=== PATIENT | female | born 1940 | race Caucasian/White ===

== ENCOUNTER → 2018-01-28 11:57 | Outpatient (CLI) | payer MEDICARE, OTHER, SELFPAY ==
--- NOTE | 2018-01-28 12:01 | RAD_ITS ---
STUDY: X-RAY CHEST REASON FOR EXAM: Female, 77 years old. Asthma. TECHNIQUE: PA and lateral views of the chest. COMPARISON: Chest, October 11, 2016. FINDINGS: There is increased AP diameter of the chest. No focal mass or infiltrate. There is no demonstrated pleural abnormality. Normal size heart. Normal mediastinum and brandon. Normal visualized pulmonary arteries. There is atherosclerotic calcification of the aortic arch with tortuosity. . An exaggerated thoracic kyphosis. Normal visualized ribs, clavicles, and shoulders. There is no demonstrated abnormality of the visualized soft tissue structures of the upper abdomen. RAD/Chest PA and Lateral IMPRESSION: No acute cardiopulmonary disease. Electronically Signed: Nicholas Colin DO at 18:09 EDT Tel [phone], Service support ,
== END ==
PROVIDERS: Family Provider Internal Medicine; PCP Internal Medicine; Visit Provider Internal Medicine Pulmonary Disease
DX: J45.909 Unspecified asthma, uncomplicated (principal)
CPT/HCPCS: 71046

== ENCOUNTER → 2018-02-07 10:34 | Outpatient (CLI) | payer MEDICARE, OTHER, SELFPAY ==
--- NOTE | 2018-02-07 10:36 | ECHOD_ITS ---
Reason For Study: HTN Procedure This was a 2D Doppler, Color Flow transthoracic echocardiogram. The exam was of fair technical quality due to body habitus. Exam performed in department. Left Ventricle Normal LV size. Left ventricular systolic function is normal. The estimated ejection fraction is 65 %. Stage 1 diastolic dysfunction. No regional wall motion abnormalities noted. Right Ventricle Normal RV size. Normal systolic function. Atria Normal left atrium. Normal right atrium. Mitral Valve Normal mitral valve. Tricuspid Valve Normal tricuspid valve. Unable to estimate RV systolic pressure, pulmonary artery pressure probably normal. Aortic Valve Normal aortic valve. Trisinus/trileaflet aortic valve. Pulmonic Valve Normal pulmonic valve. Great Vessels Normal aortic root. The pulmonary artery is normal size. Normal inferior vena cava. Pericardium/Pleural No pericardial effusion. MMode/2D Measurements & Calculations LVIDd: 3.6 cm IVSd: 1.0 cm Ao root diam: 2.5 cm LVIDs: 2.4 cm LVPWd: 1.1 cm RVDd: 2.7 cm FS: 33.5 % LAV(MOD-bp): 47.0 ml LA A4 area: 18.0 cm2 RA A4 area: 10.4 cm2 LAV(MOD-bp) Indexed: 25.2 ml/m2 LAV(MOD-sp2): 45.9 ml LAV(MOD-sp4): 45.7 ml Doppler Measurements & Calculations MV E max antony: 70.9 cm/sec Lat Peak E' Antony: 8.8 cm/sec Med Peak E' Antony: 5.6 cm/sec MV A max antony: 98.4 cm/sec E/E' lat: 8.1 E/E' med: 12.6 MV E/A: 0.72 Ao V2 max: 180.2 cm/sec LV V1 max: 144.2 cm/sec Ao max P.0 mmHg LV V1 max P.3 mmHg Interpretation Summary Normal LV size. Left ventricular systolic function is normal. The estimated ejection fraction is 65 %. Stage 1 diastolic dysfunction. Structurally normal valves. Ordering Physician: Cinthia Quiroz Referring Physician: Cinthia Quiroz Performed By: Renetta Oviedo, FELA, RVT
== END ==
PROVIDERS: Family Provider Internal Medicine; PCP Internal Medicine; Visit Provider Internal Medicine
DX: I27.20 Pulmonary hypertension, unspecified (principal)
CPT/HCPCS: 93306

== ENCOUNTER → 2018-02-08 06:59 | Outpatient (CLI) | payer MEDICARE, OTHER, SELFPAY ==
--- NOTE | 2018-02-08 12:49 | STRESSREP_ITS ---
Stress Test Report Date: 02/08/2018 Procedure: Pharmacologic stress nuclear imaging study Indications: Abnormal ECG Consent: Per the patient Procedure: The patient underwent pharmacologic (Regadenoson) evaluation with a peak heart rate of 125 beats per minute (87 predicted maximal heart rate) and a peak blood pressure of 160/92 mmHg. The baseline ECG demonstrated normal sinus rhythm; incomplete right bundle branch block. The peak pharmacologic ECG demonstrated no obvious ECG changes. There were no cardiac dysrhythmias pretest, during pharmacologic infusion, or recovery. There was no complaint of chest discomfort during pharmacologic infusion or recovery. The examination was discontinued secondary to completion of protocol. Impression: 1. Pharmacologic (Regadenoson) evaluation 2. Peak pharmacologic ECG with no obvious ECG changes. 3. Were no cardiac dysrhythmias pretest, during pharmacologic infusion, or recovery 4. Nuclear images pending Myocardial perfusion imaging study: Technique: The patient was injected with 11.9 millicuries of technetium 99m Cardiolite and subsequently rest SPECT Cardiolite nuclear imaging was obtained in the horizontal long, vertical long, and short axis views. The patient underwent pharmacologic (Regadenoson) evaluation with a peak heart rate of 125 beats per minute (87 % percent predicted maximal heart rate) and a peak blood pressure of 160/92 mmHg. The patient was injected with 33.1 millicuries of technetium 99m Cardiolite and subsequently stress SPECT Cardiolite nuclear imaging was obtained in the horizontal long, vertical long, and short axis views. A gated Cardiolite study at peak stress was obtained. Interpretation: Rest and stress SPECT Cardiolite nuclear imaging status post realignment, normalization, and attenuation correction demonstrate relative uniform tracer uptake and myocardial perfusion appearing within normal limits. There is end systolic thickening and brightening. The gated Cardiolite study demonstrates myocardial thickening and inward wall motion. The reported LVEF is 72 %. Impression: 1. Rest and stress SPECT Cardiolite nuclear imaging demonstrate relative uniform tracer uptake and myocardial perfusion appearing within normal limits. 2. The gated Cardiolite study reports an LVEF of 72 %. This note was generated with [employer] Technologies[employer] software. It may contain incorrect words, spelling, and punctuation that were not noted in checking the note before signing.
== END ==
PROVIDERS: Family Provider Internal Medicine; PCP Internal Medicine; Visit Provider Internal Medicine
DX: R94.31 Abnormal electrocardiogram [ECG] [EKG] (principal); I27.20 Pulmonary hypertension, unspecified
CPT/HCPCS: 78452; 93017; A9500; A4216; J2785

== ENCOUNTER → 2018-02-12 12:17 | Outpatient (CLI) | payer MEDICARE, OTHER, SELFPAY ==
--- NOTE | 2018-02-12 12:48 | RAD_ITS ---
STUDY: X-RAY - THORACIC SPINE REASON FOR EXAM: Female, 77 years old. Back pain for 55 years. Lumbar surgery one year ago. TECHNIQUE: 3 view(s) of the thoracic spine were obtained. COMPARISON: None. FINDINGS: There is an increase in the normal thoracic kyphosis. There is a mild levoscoliosis of the thoracic or lumbar spine with convexity at L1. There is demineralization of the thoracic spine with endplate spondylosis. There is multilevel disc space narrowing of the thoracic spine. There is no evidence of acute fracture or loss of vertebral axial height. The soft tissue structures are unremarkable. RAD/Thoracic Spine 3 Views IMPRESSION: Degenerative changes of the thoracic spine. Electronically Signed: Nicholas Colin DO at 13:24 EDT Tel [phone], Service support ,
== END ==
PROVIDERS: Family Provider Internal Medicine; PCP Internal Medicine; Visit Provider Anesthesiology Pain Medicine
DX: M54.6 Pain in thoracic spine (principal)
CPT/HCPCS: 72072

== ENCOUNTER → 2018-05-21 14:34 | Outpatient (CLI) | payer MEDICARE, OTHER, SELFPAY ==
[2018-05-21 17:00] LABS: Amphetamine Urine VISTA NEGATIVE (<1000 ng/mL); Barbiturate Urine VISTA NEGATIVE (< 200 ng/mL); Benzodiazepine Urine VISTA NEGATIVE (< 200 ng/mL); Cocaine Urine VISTA NEGATIVE (< 300 ng/mL); Ecstacy Urine VISTA NEGATIVE (< 500 ng/mL); Methadone Urine VISTA NEGATIVE (< 300 ng/mL); PCP Urine VISTA NEGATIVE (< 25 ng/mL); THC Urine VISTA NEGATIVE (< 50 ng/mL); Vista UDS pH Range 5
== END ==
PROVIDERS: Family Provider Internal Medicine; PCP Internal Medicine; Visit Provider Anesthesiology Pain Medicine
DX: F11.20 Opioid dependence, uncomplicated (principal)
CPT/HCPCS: 80307

== ENCOUNTER → 2018-06-11 12:49 | Outpatient (CLI) | payer MEDICARE, OTHER, SELFPAY | PROVIDERS: Family Provider Internal Medicine; PCP Internal Medicine; Visit Provider Orthopaedic Surgery | DX: M54.5 Low back pain (principal) | CPT/HCPCS: 72110 ==

== ENCOUNTER → 2018-08-29 12:31 | Outpatient (CLI) | payer MEDICARE, OTHER, SELFPAY ==
[2018-04-16 13:07] VITALS: BMI 37.4
--- NOTE | 2018-08-29 12:46 | RAD_ITS ---
STUDY: X-RAY CHEST REASON FOR EXAM: Female, 78 years old. Asthma. TECHNIQUE: PA and lateral views of the chest. COMPARISON: October 12, 2016 FINDINGS: The lungs are underexpanded. This is similar to previous study suggesting possible sequelae restrictive lung disease. There is interstitial thickening present in both lung bases and possible subsegmental atelectasis. There is no demonstrated pleural abnormality. There is mild cardiac enlargement. Normal mediastinum and brandon. Normal visualized pulmonary arteries. There is atherosclerotic calcification of the aortic arch with tortuosity. There is demineralization of the osseous structures. There is increased thoracic kyphosis. Normal visualized ribs, clavicles, and shoulders. There is no demonstrated abnormality of the visualized soft tissue structures of the upper abdomen. RAD/Chest PA and Lateral IMPRESSION: Bilateral basilar subsegmental atelectasis. Electronically Signed: Soraya Lemus MD at 3:18 EST , Service support ,
== END ==
PROVIDERS: Family Provider Internal Medicine; PCP Internal Medicine; Referring Provider Nurse Practitioner Gerontology; Visit Provider Nurse Practitioner Gerontology
DX: J45.901 Unspecified asthma with (acute) exacerbation (principal)
CPT/HCPCS: 71046

== ENCOUNTER → 2018-10-18 11:20 | Outpatient (CLI) | payer MEDICARE, OTHER, SELFPAY ==
--- NOTE | 2018-10-18 11:30 | RAD_ITS ---
STUDY: X-RAY - THORACIC SPINE REASON FOR EXAM: Female, 78 years old. Surgery on back 2 years ago, bent over the upper back TECHNIQUE: 3 view(s) of the thoracic spine were obtained. COMPARISON: 02/12/2018 FINDINGS: There is an increase in the normal thoracic kyphosis. Minimal dextroscoliosis of the upper thoracic spine. There is demineralization of the thoracic spine with endplate spondylosis. There is multilevel disc space narrowing of the thoracic spine. No compression fracture. The soft tissue structures are unremarkable. RAD/Thoracic Spine 2 Views IMPRESSION: 1. No compression fracture. 2. Stable degenerative changes. Electronically Signed: Clemente Hallman MD at 7:31 EST , Service support ,
== END ==
PROVIDERS: Family Provider Internal Medicine; PCP Internal Medicine; Referring Provider Anesthesiology Pain Medicine; Visit Provider Anesthesiology Pain Medicine
DX: M54.6 Pain in thoracic spine (principal)
CPT/HCPCS: 72070

== ENCOUNTER → 2018-11-14 12:36 | Outpatient (CLI) | payer MEDICARE, OTHER, SELFPAY ==
--- OUTSIDE RECORDS SUMMARY | 2018-01-30 06:32 | XMS RPT_ITS ---
:1940 Author Organization OHIP Support Name Relationship Address Phone HODARRYN, KENDELL Unavailable [address] [place] [address] R Unavailable Unavailable Unavailable HOUTS, KENDELL Unavailable [address] [place] [address] R Unavailable Unavailable Unavailable HOUTS, KENDELL Unavailable [address] [place] [address] R Unavailable Unavailable Unavailable HOUTS, KENDELL Unavailable [address] + [address] [place] [address] R Unavailable Unavailable Unavailable HOUTS, KENDELL Unavailable [address] [place] [address] R Unavailable Unavailable Unavailable HOUTS, KENDELL Unavailable [address] [place] [address] R Unavailable Unavailable Unavailable HOUTS, KENDELL Unavailable [address] [place] [address] R Unavailable Unavailable Unavailable HOUTS, KENDELL Unavailable [address] [place] [address] R Unavailable Unavailable Unavailable HOUTS, KENDELL Unavailable [address] [place] [address] R Unavailable Unavailable Unavailable HOUTS, KENDELL Unavailable [address] [place] [address] R Unavailable Unavailable Unavailable HOUTS, KENDELL Unavailable [address] [place] [address] R Unavailable Unavailable Unavailable HOUTS, KENDELL Unavailable [address] [place] [address] R Unavailable Unavailable Unavailable HOUTS, KENDELL Unavailable [address] [place] [address] R Unavailable Unavailable Unavailable Care Team Providers Name Role Phone Riojas, Kalia Attending Unavailable Gabriella, Cinthia Primary Care Unavailable Ayden Lemus Attending Unavailable Gabriella, Cinthia Primary Care Unavailable Gabriella, Cinthia Primary Care Unavailable Ayden Lemus Attending Unavailable Lemus, Ayden Attending Unavailable Mi, Mary Anne Attending Unavailable Mi, Mary Anne Attending Unavailable Gabriella, Cinthia Primary Care Unavailable Mi, Mary Anne Attending Unavailable Basali, Simman Attending Unavailable Gabriella, Cinthia Primary Care Unavailable Gabriella, Cinthia Primary Care Unavailable Basali, Simman Attending Unavailable Gabriella, Cinthia Primary Care Unavailable Mi, Mary Anne Attending Unavailable Gabriella, Cinthia Attending Unavailable Gabriella, Cinthia Primary Care Unavailable Gabriella, Cinthia Attending Unavailable Gabriella, Cinthia Referring Unavailable Gabriella, Cinthia Primary Care Unavailable Gabriella, Cinthia Primary Care Unavailable Cheko Arias Attending Unavailable Cheko Arias Referring Unavailable PROBLEMS PROBLEMS DATE TYPE CONDITION / CODE ATTENDING STATUS SOURCE 01/30/2018 Unknown R94.31 - Abnormal Gabriella, Active [place] electrocardiogram [facility] [ECG] [EKG] / Hospital R94.31(ICD-10) Repository 09/17/2017 Unknown N63.20 - Unspecified Gabriella, Active [place] lump in the left [facility] breast, unspecified Hospital quadrant / Repository N63.20(ICD-10) 08/30/2017 Unknown SPONDYLOLISTHESIS, Mi, Mary Anne Active [place] LUMBAR REGION / Community M43.16(ICD-10) Hospital Repository 08/30/2017 Unknown ARTHRODESIS STATUS / Mi, Mary Anne Active [place] Z98.1(ICD-10) Community Hospital Repository 05/30/2017 Unknown OPIOID DEPENDENCE, Jean Claude Delgado Active [place] UNCOMPLICATED / Community F11.20(ICD-10) Hospital Repository 05/30/2017 Unknown RADICULOPATHY, LUMBAR Mi, Mary Anne Active [place] REGION / Community M54.16(ICD-10) Hospital Repository 05/30/2017 Unknown SPRAIN OF OTHER Riojas, Kalia Active [place] LIGAMENT OF RIGHT Community ANKLE, INITIAL Hospital ENCOUNTER / Repository S93.491A(ICD-10) 05/30/2017 Unknown OBSTRUCTIVE SLEEP Riojas, Kalia Active [place] APNEA (ADULT) Community (PEDIATRIC) / Hospital G47.33(ICD-10) Repository 05/30/2017 Unknown DORSALGIA, UNSPECIFIED Riojas, Kalia Active [place] / M54.9(ICD-10) [facility], 1928[facility]1983 Hospital Repository 05/30/2017 Unknown OTHER CHRONIC PAIN / Riojas, Kalia Active [place] G89.29(ICD-10) [facility], [facility]1983 Hospital Repository 05/30/2017 Unknown OVEREXERTION FROM Riojas, Kalia Active [place] PROLONGED STATIC OR Community AWKWARD POSTURES, INIT Hospital / X50.1XXA(ICD-10) Repository 05/30/2017 Unknown ACTIVITY, OTHER Riojas, Kalia Active [place] SPECIFIED / Community Y93.89(ICD-10) Hospital Repository 05/30/[address] OR Riojas, Kalia Active [place] NOT APPLICABLE / Community Y92.9(ICD-10) Hospital Repository 05/30/2017 Unknown OTHER EXTERNAL CAUSE Riojas, Kalia Active [place] STATUS / Y99.8(ICD-10) [facility] Repository PROCEDURES PROCEDURES No Procedure Records FoundRESULTS RESULTS CHEST PA AND LATERAL Observed: 01/28/2018 Status: F Source: [place] 12:01 PM [facility] RE[facility]IT[facility] [id number] [facility] [place], [place] [address]Tylgp PA and LateralMR#: [id number] Acct: [id number]: [place] MILLER Rep #: [id number]: 1940 F 77 From: Nicholas Colin DOPCP: Cinthia Quiroz DO Status: REG CLIStudy: Chest PA and Lateral Date of Exam: 01/28/18Exam# [id number] Ordering Dr: Cheko Arias V MDSTUDY: X-RAY CHESTREASON FOR EXAM: Female, 77 years old. Asthma.TECHNIQUE: PA and lateral views of the chest.COMPARISON: Chest, October 11, 2016. FINDINGS:There is increased AP diameter of the chest. No focal mass or infiltrate.There is no demonstrated pleural abnormality.Normal size heart. Normal mediastinum and brandon. Normal visualizedpulmonary arteries. There is atherosclerotic calcification of the aorticarch with tortuosity.. An exaggerated thoracic kyphosis. Normal visualized ribs, clavicles,and shoulders.There is no demonstrated abnormality of the visualized soft tissuestructures of the upper abdomen. RAD/Chest PA and LateralIMPRESSION:No acute cardiopulmonary disease.Electronically Signed:Nicholas Colin DO at 18:09 EDTT [phone], Service support , AV: Cinthia Quiroz DO; Cheko Arias MD Fender Mechanic:Signed BREAST LIMITED Observed: 09/17/2017 Status: F Source: [place] UNILATERAL 2:18 PM [facility] REPOSITORY [facility] [address], [place] [address]Vhfyow Limited UnilateralMR#: [id number] Acct: [id number]: [place] MILLER Rep #: [id number]: 1940 F 77 From: Michael Sutherland MDPCP: Cinthia Quiroz DO Status: REG CLIStudy: Breast Limited Unilateral Date of Exam: 09/17/17Exam# [id number] Ordering Dr: Cinthia Quiroz DOSTUDY: ULTRASOUND BREAST - LEFTREASON FOR EXAM: Female, 77 years old. Left breast pain.TECHNIQUE: Axial and longitudinal images of the LEFT breast wereperformed with a high resolution ultrasound transducer.COMPARISON: Comparison is made with prior ultrasound dated November and prior mammogram done earlier in the day. FINDINGS:LEFT Breast :There is a 4 mm x 4 mm x 3 mm cyst at the 5:00 position in the breast at 2cm from the nipple. ORDER #: [id number] US/Breast Limited UnilateralIMPRESSION:4 mm x 4 mm x 3 mm cyst at the 5:00 position breast at 2 cm from thenipple. ASSESSMENT CATEGORY:BIRADS Category 2: Benign. A letter regarding these results will be sentto the patient by the facility within 30 days.Electronically Signed:Michael Sutherland MD at 15:33 ESTTel [phone], Service support , QG: Cinthia Quiroz DO Fender Mechanic:Signed DIAG MAMM W/CAD, Observed: 09/17/2017 Status: F Source: [place] BILAT 1:12 PM [facility] RE[facility]ITORY [facility] [address] [place], [place] [address]WDSM MAMM W/CAD, BILATMR#: [id number] Acct: [id number]: ROSELYNJAMAICA CATES Rep #: [id number]: 1940 F 77 From: Michael Sutherland MDPCP: Cinthia Quiroz DO Status: REG CLIStudy: DIAG MAMM W/CAD, BILAT Date of Exam: 09/17/17Exam# [id number] Ordering Dr: Cinthia Quiroz DOMAMMOGRAPHY - BILATERAL DIAGNOSTICREASON FOR EXAM: Female, 77 years old. Pain along the lateral outerquadrant of the left breast.PERTINENT HISTORY: Prior right excisional breast biopsy.TECHNIQUE: Digital bilateral breast mickey (3D mammographic acquisition) inthe CC and MLO projections. 2-D mediolateral oblique (MLO) and craniocaudad(CC) views of both breasts were obtained. CAD: Full Field DigitalMammography with Computer Added Detection was performed.COMPARISON : Comparison is made with prior study dated May 02, 2016 andApril 06, 2015. FINDINGS:Breast Composition: There are scattered areas of fibroglandular density.There are no dominant masses or suspicious calcifications. Stable smallbilateral benign appearing axillary lymph nodes. Stable benign-appearingsmall nodules in the upper outer quadrant of the left breast suggestive ofsmall lymph nodes.No other significant abnormalities are identified. There has been nosignificant change since the prior study. ORDER #: [id number] HPBI/DIAG MAMM W/ CAD, BILATIMPRESSION:Stable bilateral diagnostic mammogram. One year follow-up recommended. (A) ASSESSMENT CATEGORY:BIRADS Category 2: Benign. A letter regarding these results will be sentto the patient by the facility within 30 days.Approximately 10% of breast cancers are not detected by mammography. Anormal mammogram should not delay biopsy of a clinically suspiciousabnormality.Electronically Signed:Michael Sutherland MD at 15:32 ESTTel [phone], Service support , DU: Cinthia Quiroz DO Fender Mechanic:Signed L/S SPINE MIN 4 Observed: 08/28/2017 Status: F Source: [place] [facility] 10:47 AM [facility] REPOSITORY [facility] [id number] [place] [address]/S Spine Min 4 ViewsMR#: [id number] Acct: [id number]: [place] MILLER Rep #: [id number]: 1940 F 77 From: Julien Aragon MDPCP: Cinthia Quiroz DO Status: REG CLIStudy: L/S Spine Min 4 Views Date of Exam: 08/28/17Exam# [id number] Ordering Dr: Mary Anne Mi MDSTUDY: X-RAY - LUMBAR SPINEREASON FOR EXAM: Female, 77 years old. PostopTECHNIQUE: 5 view(s) of the lumbar spine were obtained.COMPARISON: X- rays of the lumbar spine on May 02, 2017 FINDINGS :There is an exaggerated lumbar lordosis. There is no substantialscoliosis. The patient is status post posterior fusion with transpedicularscrews at L5-S1. The hardware is intact and in proper position.Normal vertebral bodies. There is degenerative disc disease of the lowerthoracic spine and upper lumbar spine with anterior osteophytes. There isdisc space narrowing at L1-2 and L2-3 and L5-S1. There is osteoporosis.There is atherosclerotic calcification of the abdominal aorta without ademonstrated aneurysm. ORDER #: [id number] RAD/L/S Spine Min 4 ViewsIMPRESSION:Status post posterior fusion at L5-S1, uncomplicated.Multilevel degenerative disease.Stable since last examination.Electronically Signed: Julien Aragon MD, FRKU5216/08/28 at 15:24 ESTTel , Service support , YR: Mary Anne Mi; Cinthia Quiroz DO Fender Mechanic:Signed PT D/C SUMMARY (1) Observed: 06/27/2017 Status: F Source: [place] 11:24 AM [facility] [address] [facility] [address] [place] [address] [phone] [phone] FaxREHABILITATION SERVICESDISCHARGE SUMMARYMR#: [id number] Acct : [id number]: [place] MILLER Rep #: [id number]: 1940 77 From: Shin Foster PT, Cert. MDT, OCSReferring DrKathie: Mary Anne Mi Status: REG RCRInsurance: MEDICARE PART A BCOMMERCIAL OTHERHP - PT D/C SummaryIt has been my pleasure to treat JAMAICA MILLER under orders from Mary Anne Mi, for thediagnosis of s/p lumbar fusion for a total of 7 visit(s).Discharge Date: 06/26/17Please see the following information for a summary of their discharge status.- SubjectiveSubjective: DOING GOOD- Pain Bilateral BackPain Intensity (Out of 10): 1- Overall Improvement% Improvement: 75- ObjectiveObjective/Function: POSTURE: rounded shoulders head. GAIT: mild foward posture. MMT: 4/5quads/hams,flexion 4-/5. LUMBAR ROM: flexion WFL,extension min/mod. -SLR- GoalsGoal 1:: Independant with HEP.Goal Progress: Goal MetGoal 2:: Independant with posture for ADL'SGoal Progress: Goal MetGoal 3:: Decrease lumbar pain by 50% or greater to improve function with walking and standingGoal Progress: Goal MetGoal 4:: Patient to increase strength BLE by 4/5 to improve function with walking and standing.Goal Progress: Goal MetGoal 5:: Patient be able to perform ADLS' and light housework tasks with min limiation- PlanPlan: D/C TO HEP- D/C InformationDischarge Comments: HEPIf there are questions or concerns regarding this patient's physical therapy, please feel freeto call me at [phone]. Thank you for the referral of this patient.Sincerely,Shin Foster PT,< Electronically signed by Shin Foster PT, Cert. CONNOR, OCS> 06/27/17 1124CC: Mary Anne Mi; Cinthia Quiroz DO DT: 06/26/17JLASigned INITAL EVALUATION (1) Observed: 05/30/2017 Status: F Source: [place] [facility] 8:17 AM [facility] [address] [facility]. [address] [place] [address] [phone] [phone] FaxREHABILITATION SERVICESINITIAL EVALUATIONMR#: [id number] Acct: [id number]: [place] MILLER Rep #: [id number]: 1940 77 From: Shin Androsik PT, Cert. MDT, OCSReferring : Mary Anne Mi Status: REG RCRInsurance: MEDICARE PART A BCOMMERCIAL OTHERPatient's Visit InformationJAMAICA MILLER is a 77 year old F referred to Physical Therapy by Mary Anne Mi with adiagnosis of s/p lumbar fusion.Date of Evaluation: 05/29/17Physical Therapist: Shin Foster, PT,- Visit PlanFrequency: 2x /WeekDuration: 4 WeeksPlan: POSTURAL EX'S,DLS,BLE STRENGTHENING- SubjectiveSubjective: This 77 y/o female presents to physical therapy with s/p lumbar fusion 02/19/17 [facility]. Surgery consisted of jennifer screws. Patient has had lumbar pain andradicular symptoms many years.Patient had MRI showed DDD ,stenosis. Tried PT and epiduralinjections didn't help. Patient in hospital for 6 days with 1st 3days laying supine due tosurgery dural tear . Patient was transferred to [facility] for Rehab 5 1/2 weeks then d/chome with HOME PT. Patient intially used fww then straight cane. Patient has symmtricallylumbar pain ocassioanl hip pain left side. Bowel/bladder good . Denies parathesia tingling.Pain worse with walking,standing ,sitting. Patient pain affects sleeping. Pain is able toperform ADL'S min housework tasks. SOCAIL: single. VOCATION: retired- Pain Bilateral BackPain Intensity (Out of 10): 4Pain Intensity Range: 10- ObjectivePOSTURE: mild/mod thoracic kyphosis,mild foward posture ,hips/knees flexed. GAIT: mildunsteady mild foward posture. NEURO: denies parathesia/tingling,reflexes 1/3L3-4,L4-5,L51-S1,mytomes inact. MMT: quads/hams/hip 4-/5,left 3+/5 ,ankle 4 /5. FLEXABILITY:hams min tight. ASSYMTRIES : pelvis. LUMBAR ROM: flexion min loss,extension mod/severe,sideglides mod loss- Special TestsL/S Slump test left side: NegativeL/S Slump test right side: NegativeL/S Left Straight Leg Raise: NegativeL/S Right Straight Leg Raise: Negative- GoalsGoal 1:: Independant with HEP.Goal Time Frame: 4-6 WeeksGoal 2:: Independant with posture for ADL'SGoal Time Frame: 4-6 WeeksGoal 3:: Decrease lumbar pain by 50% or greater to improve function with walking and standingGoal Time Frame: 4-6 WeeksGoal 4:: Patient to increase strength BLE by 4/5 to improve function with walking and standing.Goal Time Frame: 4-6 WeeksGoal 5:: Patient be able to perform ADLS' and light housework tasks with min limiationGoal Time Frame: 4-6 Weeks- Rehabilitation PotentialPhysical Therapy Diagnosis: Patient underwent s/p lumbar fusion with rods and srews on 02/19/17with strength, lumbar ROM,function ,endurance thus will benifit from skilled PT toadress above impairmetsRehabilitation Potential: Good- Anticipated InterventionsPatient/ Client Instruction: Educate patient on: Condition, Plan of CareFor the Purpose of:: To decrease pain, To improve muscle performance and motor function, Toincrease tolerance to activity/condition/position, To improve performance and independence withADL 's, To improve ability of physical actions for home/community/work/leisure, To improvehealth of tissue, To decrease soft tissue restriction, To increase flexibility/ROM, To improveendurance, To reduce risk of recurrence, To improve ability to perform tasks related to lifemanagementTherapeutic Exercise to Include: Strength training, Body mechanics, Postural training,Flexibilty training, Dynamic Lumbar StabilizationFor the Purpose of:: To decrease pain, To increase tolerance to activity/condition/ position, Toimprove performance and independence with ADL's, To improve ability of physical actions forhome/community/work/leisure, To improve health of tissue, To decrease soft tissue restriction,To increase flexibility/ROM, To improve endurance, To improve ability to perform tasks relatedto life managementManual Therapy Techniques to Include: Soft tissue mobilizationFor the Purpose of:: To decrease pain, To improve health of tissue, To decrease soft tissuerestrictionIF ES: YesCryotherapy (ice pack, ice massage): YesThermo therapy (hot pack): YesFor the Purpose of:: To decrease pain, To increase ROM, To improve nutrient delivery to tissue,To increase oxygenation perfusion, To improve health of tissue, To decrease soft tissuerestrictionThank you for the opportunity to evaluate your patient.For Medicare and Medicare HMO plans, please review the plan of care and approve it.It will need to be FAXED BACK to us at [phone] for Medicare purposes.Please let me know if there are questions or concerns regarding this plan of care.Physician Signature: Date: &lt ;Elect ronically signed by Shin Foster PT, Cert. MDT, OCS> 05/30/17816CC: Mary Anne Mi; Cinthia Quiroz DO DT: 05/29/17JLASignedFor Medicare only, by signing this I certify the plan of care. Physicians Signature Date URINE DRUG SCREEN Collected: 05/12/2017 Status: F Source: [place] ([place] CARL[place]) 10:59 AM [facility] REPOS[facility] Order Comment: Comments: RUN LOWEST TESTList of Drugs Taken or Suspected? UNKNOWN TYPE CODE TESTS RESULT OUT OF RANGE REFERENCE UNITS LAB L505.0075 Normal TO BE CONFIRMED Result Comment: CONFIRMATORY TESTING FOR ALL POSITIVE URINE DRUG SCREENRESULTS WILL ONLY BE SENT OUT UPON PHYSICIAN ORDER.VISTA Urine Drug Screen methods provide only preliminaryanalytical test results. A more specific alternate chemicalmethod must be used in order to obtain a confirmedanalytical result. Gas chromatography/mass spectrometery(GC/MS) is the preferred confirmatory method. Clinicalconsideration and professional judgement should be appliedto any drug of abuse test result, particularly whenpreliminary positive results are used.URINE TCA TESTING MUST BE ORDERED SEPARATELY. USE TESTMNEMONIC: [facility] LAB L505.5005 Normal VISTA UDS PH 6 LAB L505.5015 Normal <1000 AMPHETAMINES NEGATIVE ng/mL LAB L505.5025 Normal < 200 BARBITIURATES NEGATIVE ng/mL LAB L505.5035 Normal < 200 BENZODIAZIPINE NEGATIVE ng/mL LAB L505.5045 Normal < 300 COCAINE NEGATIVE ng/mL LAB L505.5055 High < 500 ECSTACY POSITIVE ng/mL LAB L505.5065 Normal < 300 METHADONE NEGATIVE ng/mL LAB L505.5075 Normal < 300 OPIATES NEGATIVE ng/mL LAB L505.5085 Normal < 25 PCP NEGATIVE ng/mL LAB L505.5095 Normal < 50 THC NEGATIVE ng/mL Performed By: #### L505.5000 ####[facility] [address] [place], [place], [address] MISCELLANEOUS LAB Collected: 05/12/2017 Status: F Source: [place] PROCEDURE 10:59 AM [facility] RE[facility] Order Comment: Comments: RUN LOWEST TESTTest(s) Ordered: [id number] URINE TOX TYPE CODE TESTS RESULT OUT OF RANGE REFERENCE UNITS LAB L801.1541 Normal [facility] LAB TEST Result Comment: 090080 6+OXYCODONE-BUND (ng/mL)DRUG RESULT SCREEN CUTOFF____ Amphetamines,Urine Negative ng/mL 1000Amphetamine test includes Amphetamine and Methamphetamine.Barbiturates Negative ng/mL 200Benzodiazepines Negative ng/mL 200Cannabinoid Negative ng/mL 20Cocaine (Metab) Negative ng/mL 300Opiates Negative ng/mL 300 Opiates test includes Codeine, Morphine, Hydromorphone, Hydrocodone.Oxycodone/Oxymorphone, Urine Negative ng/mL 300 Test includes Oxydodone and Oxymorphone. TESTING PERFORMED AT [facility]. ORIGINAL REPORT ON FILE IN LAB CONTAINS ADDITIONAL TEST SITE INFORMATION. Performed By: #### L801.1541 ####[facility] [address] [place], [address] URINE DRUG SCREEN Collected: 05/11/2017 Status: P Source: [place] ([place] CARLOS) 2:21 PM [facility] RE[facility] Order Comment: Comments: RUN LOWEST TESTList of Drugs Taken or Suspected? UNK TYPE CODE TESTS RESULT OUT OF RANGE REFERENCE UNITS LAB L505.0075 Normal TO BE CONFIRMED Result Comment: CONFIRMATORY TESTING FOR ALL POSITIVE URINE DRUG SCREENRESULTS WILL ONLY BE SENT OUT UPON PHYSICIAN ORDER.VISTA Urine Drug Screen methods provide only preliminaryanalytical test results. A more specific alternate chemicalmethod must be used in order to obtain a confirmedanalytical result. Gas chromatography/mass spectrometery(GC/MS) is the preferred confirmatory method. Clinicalconsideration and professional judgement should be appliedto any drug of abuse test result, particularly whenpreliminary positive results are used.URINE TCA TESTING MUST BE ORDERED SEPARATELY. USE TESTMNEMONIC: [facility] Performed By: #### L505.5000 ####[facility] [address] [place], [address] LUMBAR SPINE 2 OR 3 Observed: 05/02/2017 Status: F Source: [place] VIEWS 8:36 AM [facility] RE[facility] [address], [place] [address]Huifmcl 4dLumbar Spine 2 or 3 ViewsMR#: [id number] Acct: [id number]: [place] MILLER Rep #: [id number]: 1940 F 76 From: Ari Dyson MDPCP: Status: REG CLIStudy: Lumbar Spine 2 or 3 Views Date of Exam: 05/02/17Exam# [id number] Ordering Dr: Mary Anne Mi MDSTUDY: X-RAY - LUMBAR SPINEREASON FOR EXAM: Female, 76 years old. PostopTECHNIQUE: 3 view(s) of the lumbar spine were obtained.COMPARISON: 03/27/2017 FINDINGS: Stable postoperative changes including fixation at L5-S1. No acuteabnormalities. Mild/moderate multilevel degenerative changes.IMPRESSION: Stable satisfactory appearance of surgical changes and fixationat L5-S1.Electronically Signed: Ari Dyson MD at 16:40 EDTTel , Service support , CRVXB #: [id number] RAD/Lumbar Spine 2 or 3 ViewsCC: Mary Anne Mi M.D. Fender Mechanic:Signed L/S SPINE W BEND Observed: 03/27/2017 Status: F Source: [place] MIN 6 VW 11:36 AM [facility] RE[facility] [address] [place] [address]Omrtqix 4dL/S Spine w Bend Min 6 VwMR#: [id number] Acct: [id number]: [place] MILLER Rep #: [id number]: 1940 F 76 From: Julien Aragon MDPCP: Status: REG CLIStudy: L /S Spine w Bend Min 6 Vw Date of Exam: 03/27/17Exam# [id number] Ordering Dr: Mary Anne Mi MDSTUDY: X-RAY - LUMBOSACRAL SPINEREASON FOR EXAM: Female, 76 years old. 6 weeks surgery follow-upTECHNIQUE: 6 view(s) of the lumbosacral spine were obtained.COMPARISON: Prior preoperative x-rays of the lumbar spine on January FINDINGS:Normal lumbar lordosis. There is mild levoscoliosis. The patient is statuspost posterior fusion at L5-S1 since the last examination withtranspedicular screws and posterolateral fusion with bone graft material.Grade 1 anterolisthesis is again noted. The hardware is intact and properposition.Normal vertebral bodies and endplates. Normal disc space heights.Normal bilateral sacral ala, sacroiliac joints, and visualized sacrum.Normal visualized soft tissue structures. The patient is status post lefttotal hip arthroplasty. ORDER #: [id number] RAD/L/S Spine w Bend Min 6 VwIMPRESSION:Status post posterior fusion at L5-S1 with transpedicular screws and bonegraft material, stable, uncomplicatedElectronically Signed: Julien Aragon MD, HWLA4879/03/27 at 14:02 [facility] System [phone], Service support , UF: Mary Anne Mi M.D. Fender Mechanic: Signed CBC-COMPLETE BLOOD CNT Collected: 03/09/2017 Status: F Source: [place] NO DIFF 4:47 AM [facility] REPOSITORY Order Comment: 410 TYPE CODE TESTS RESULT OUT OF RANGE REFERENCE UNITS LAB L100.1000 Normal 4.4-11.0 K/mm3 WBC 8.0 LAB L100.1200 Low 4.2-5.4 M/mm3 RBC 3.39 LAB L100.1300 Low 12.0-15.0 g/dl HGB 9.8 LAB L100.1400 Low 37-47 % HCT 31.6 LAB L100.1500 Normal 81-99 fL MCV 93.2 LAB L100.1600 Normal 27.0-32.0 pg MCH 28.9 LAB L100.1700 Low 32-36 g/gl MCHC 31.0 LAB L100.1810 High 11.6-14.6 % RDW 15.8 CV LAB L100.1820 High 35.1-43.9 fl RDW 54.1 SD LAB L100.1900 High 150-450 K/mm3 PLT 489 LAB L100.2000 Normal 6.2-12.0 fl MPV 8.6 Performed By: #### L100.0500 ####[facility] [address] [place], [address] BASIC METABOLIC Collected: 03/09/2017 Status: F Source: [place] PROFILE (BMP) 4:47 AM [facility] REPOS[facility]ORY Order Comment: 410 TYPE CODE TESTS RESULT OUT OF RANGE REFERENCE UNITS LAB L501.0100 Normal 70-110 mg/dL GLU 104 LAB L501.1000 High 7-18 mg/dL BUN 24 LAB L501.1100 High 0.55-1.02 mg/dL 1.18 CREAT,SERUM Result Comment: The validity of the calculated GFR AND GFRAA in patients over70 years has not been determined. Clinical correlation isessential. LAB L501.1110 Low >60 mL/min EST GFR 47 Result Comment: Non- GFR Calc LAB L501.1115 Low >60 mL/min EST GFR - AA 57 Result Comment: GFR Calc LAB L501.1300 High 10-20 RATIO BUN/CRE 20.3 LAB L501.2200 Normal 8.5-10.1 mg/dL CA 8.7 LAB L501.5300 Normal 136-145 mmol/L NA 139 LAB L501.5600 Normal 3.5-5.1 mmol/L K 4.3 LAB L501.5900 Normal 98-107 mmol/L CL 100 LAB L501.6100 High 21.0-32.0 mmol/L CO2 34.0 LAB L501.6200 Normal 5-15 GAP 5 Performed By: #### L500.2500 ####[facility] [address] [place], [place], [id number] CBC-COMPLETE BLOOD CNT Collected: 03/02/2017 Status: F Source: [place] NO DIFF 6:05 AM [facility] RE[facility] TYPE CODE TESTS RESULT OUT OF RANGE REFERENCE UNITS LAB L100.1000 Normal 4.4-11.0 K/mm3 WBC 9.9 LAB L100.1200 Low 4.2-5.4 M/mm3 RBC 3.30 LAB L100.1300 Low 12.0-15.0 g/dl HGB 9.7 LAB L100.1400 Low 37-47 % HCT 30.2 LAB L100.1500 Normal 81-99 fL MCV 91.5 LAB L100.1600 Normal 27.0-32.0 pg MCH 29.4 LAB L100.1700 Normal 32-36 g/gl MCHC 32.1 LAB L100.1810 High 11.6-14.6 % RDW 15.9 CV LAB L100.1820 High 35.1-43.9 fl RDW 51.2 SD LAB L100.1900 Normal 150-450 K/mm3 PLT 424 LAB L100.2000 Normal 6.2-12.0 fl MPV 9.3 Performed By: #### L100.0500 ####[facility] [address] [place], [place], [address] BASIC METABOLIC Collected: 03/02/2017 Status: F Source: [place] PROFILE (BMP) 6:05 AM [facility] TYPE CODE TESTS RESULT OUT OF RANGE REFERENCE UNITS LAB L501.0100 Normal 70-110 mg/dL GLU 80 LAB L501.1000 Normal 7-18 mg/dL BUN 13 LAB L501.1100 Normal 0.55-1.02 mg/dL 0.78 CREAT,SERUM Result Comment: The validity of the calculated GFR AND GFRAA in patients over70 years has not been determined. Clinical correlation isessential. LAB L501.1110 Normal >60 mL/min EST GFR 76 Result Comment: Non- GFR Calc LAB L501.1115 Normal >60 mL/min EST GFR - 92 AA Result Comment: GFR Calc LAB L501.1300 Normal 10-20 RATIO BUN/CRE 16.6 LAB L501.2200 Normal 8.5-10.1 mg/dL CA 8.6 LAB L501.5300 Normal 136-145 mmol/L NA 139 LAB L501.5600 Normal 3.5-5.1 mmol/L K 4.3 LAB L501.5900 Normal 98-107 mmol/L CL 100 LAB L501.6100 Normal 21.0-32.0 mmol/L CO2 32.0 LAB L501.6200 Normal 5-15 GAP 7 Performed By: #### L500.2500 ####[facility] [address] [place], [place], [address] CBC W/DIFF, AUTOMATED Collected: 02/27/2017 Status: F Source: [place] 9:00 AM [facility] Order Comment: [id number] TYPE CODE TESTS RESULT OUT OF RANGE REFERENCE UNITS LAB L100.1000 Normal 4.4-11.0 K/mm3 WBC 9.3 LAB L100.1200 Low 4.2-5.4 M/mm3 RBC 3.28 LAB L100.1300 Low 12.0-15.0 g/dl HGB 9.4 LAB L100.1400 Low 37-47 % HCT 29.8 LAB L100.1500 Normal 81-99 fL MCV 90.9 LAB L100.1600 Normal 27.0-32.0 pg MCH 28.7 LAB L100.1700 Low 32-36 g/gl MCHC 31.5 LAB L100.1810 High 11.6-14.6 % RDW 15.6 CV LAB L100.1820 High 35.1-43.9 fl RDW 51.4 SD LAB L100.1900 Normal 150-450 K/mm3 PLT 369 LAB L100.2000 Normal 6.2-12.0 fl MPV 9.2 LAB L100.2100 Normal 47-70 % NEUT% 66.5 LAB L100.2200 Low 19-41 % LY% 15.4 LAB L100.2300 High 0-10 % MONO% 12.0 LAB L100.2400 Normal 0-5 % EO% 4.3 LAB L100.2500 Normal 0-1 % BASO% 0.2 LAB L100.2550 High 0.0-0.9 % IM 1.600 GRAN % Result Comment: IG% - Immature Granulocytes (promyelocytes, myelocytes andmetamyelocytes) > 1% indicates that a LEFT SHIFT is Present. LAB L100.2620 Normal 2.0-7.7 X10 3/uL Absolute Neut 6.2 LAB L100.2720 Normal 0.83-4.51 X10 3/ul Absolute Lymph 1.42 Performed By: #### L100.0100 ####[facility] [address] [place], [place], [address] BASIC METABOLIC Collected: 02/27/2017 Status: F Source: [place] PROFILE (BMP) 9:00 AM [facility] Order Comment: 410 TYPE CODE TESTS RESULT OUT OF RANGE REFERENCE UNITS LAB L501.0100 High 70-110 mg/dL GLU 113 Result Comment: Fasting Glucose result from 110 to <126 mg/dLsuggests IMPAIRED HOMEOSTASIS per A.D.A. criteria. LAB L501.1000 Normal 7-18 mg/dL BUN 10 LAB L501.1100 Normal 0.55-1.02 mg/dL CREAT,SERUM 0.78 Result Comment: The validity of the calculated GFR AND GFRAA in patients over70 years has not been determined. Clinical correlation isessential. LAB L501.1110 Normal >60 mL/min EST GFR 76 Result Comment: Non- GFR Calc LAB L501.1115 Normal >60 mL/min EST GFR - 92 AA Result Comment: GFR Calc LAB L501.1300 Normal 10-20 RATIO BUN/CRE 12.7 LAB L501.2200 Normal 8.5-10.1 mg/dL CA 8.6 LAB L501.5300 Normal 136-145 mmol/L NA 139 LAB L501.5600 Normal 3.5-5.1 mmol/L K 3.6 LAB L501.5900 Normal 98-107 mmol/L CL 103 LAB L501.6100 Normal 21.0-32.0 mmol/L CO2 31.0 LAB L501.6200 Normal 5-15 GAP 5 Performed By: #### L500.2500 ####[facility] [address] [facility] [place], [address] EMERGENCY DEPARTMENT Observed: 02/12/2017 Status: F Source: [place] SUMMARY 9:07 PM [facility] REPOSITORY [facility] [address] [facility] [place], [place] [address]Hdvnruheo Department SummaryMR#: [id number] Acct: [id number]: JAMAICA MILLER Rep #: [id number]: 1940 76 From: Kalia Riojas MDPCP: Cinthia Quiroz DO Status: DEP ERDATE OF SERVICE: 02/12/2017HISTORY OF PRESENT ILLNESS:A 76-year-old with a plantar inversion mechanism injury, who presents with pain in thelateral aspect of the right ankle. This occurred several hours ago. Per nursingprotocol, x-ray was obtained prior to me seeing the patient. She denies any paresthesia,anesthesia, or motor weakness. She has no other complaints.PHYSICAL EXAMINATION:EXTREMITIES: She has pain to palpation over the lateral malleolus and over the anteriortalofibular ligament. There is no pain to palpation over the medial malleolus. There isno pain to palpation over the Achilles tendon. There is no pain to palpation of the baseof fifth metatarsal. DP and PT pulses are palpable.EMERGENCY DEPARTMENT COURSE:X-ray of the ankle was obtained and is negative for fracture.IMPRESSION:Stable ankle sprain, anterior talofibular ligament, initial encounter.DISPOSITION:Discharge.KENDELL Kumar C: Cinthia Quiroz DOT: NTSJOB: [id number] <Electronically signed by Kalia Riojas MD>Date Kalia Riojas [facility] [place], [place] Signature (If Indicated): Date CC: Cinthia Quiroz DO Date Dictated: 10/31Date Transcribed: 02/12/171909Transcriptionist:Signed DISCHARGE INSTRUCTION Observed: 02/12/2017 Status: F Source: [place] 7:11 PM [facility] RE[facility] [address] [facility] [place], [place] [address]Gqtyiabzm Kvkqshlubrl53/01/171909MR#: [id number] Acct: [id number]: J[place] MILLER Rep #: [id number]: 1940 76 From: Kalia Riojas MDPCP: Status: PRE ERED Disposition- Plan for ED Patient:Disposition: Home or Assisted LivingChief Complaint: Lower Extremity InjuryInstructions: ED Sprain Ankle W X RayReferrals:Doctor,Your [STAFF PHYSICIAN] - 1-2 WeeksWhat to do if you have ProblemsFor any increased pain, shortness of breath, bleeding, nausea or vomiting, chest pain, or anyunexpected problems, contact your Primary Care Provider. Call [facility] ([phone])or report to the closest Emergency Room.Call 911 if necessary.02/12/171910 <Electronically signed by Kalia Riojas MD>Date Kalia Riojas [facility] – [place], [place] Signature (If Indicated): Date CC: ANKLE MIN 3 VIEWS Observed: 02/12/2017 Status: F Source: [place] 6:27 PM [facility] RE[facility]ORY [facility] [address] [place] [address]Cqolatx 4dAnkle min 3 ViewsMR#: [id number] Acct: [id number]: J[place] MILLER Rep #: [id number]: 1940 F 76 From: Ari Dyson MDPCP: Cinthia Quiroz DO Status: DEP ERStudy: Ankle min 3 Views Date of Exam: 02/12/17Exam# [id number] Ordering Dr: Kalia Riojas MDSTUDY: X-RAY - RIGHT ANKLEREASON FOR EXAM: Female, 76 years old. Pain.TECHNIQUE: 3 view(s) of the ankle.COMPARISON: None. FINDINGS:Normal visualized distal tibia and fibula. Normal medial and lateralmalleoli. Normal tibiotalar articulation and ankle mortise.Normal visualized talus and calcaneus.The visualized subtalar, talonavicular, calcaneocuboid and tarsalarticulations are normal.The soft tissue structures are unremarkable. 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 ALLERGIES ALLERGIES DATE TYPE / CODE NAME / CODE REACTION SEVERITY SOURCE 01/09/2016 Drug hydromorphone Hives Unknown [place] Allergy/416 HCl/[id number]([address]) Repository 01/09/2016 Drug venom-honey Hives Unknown [place] Allergy/416 bee/[id number]([address]) Repository 01/09/2016 Drug hydromorphone Hives [place] Allergy/416 HCl/[id number]([address]) Repository 01/09/2016 Drug venom-honey Hives [place] Allergy/416 bee/[id number]([address]) Repository ENCOUNTERS ENCOUNTERS ADMIT/DISCHARGE ACCOUNT ADMITTING ENCOUNTER LOCATION SOURCE NUMBER CLASS 01/30/2018 [id number] Ambulatory [place] 7 [facility] Hospital ing:CVS Repository 01/28/2018 [id number] Ambulatory [place] 7 [facility] Hospital ing:HPRAD Repository 09/17/2017 [id number] Ambulatory [place] 4 [facility] Hospital ing:BI Repository 08/28/2017 [id number] Ambulatory [place] 0 [facility] Hospital ing:HPRAD Repository 06/26/2017/ [id number] Ambulatory [place] 7 0 [facility]PT Repository 05/12/2017 [id number] Ambulatory [place] 7 [facility] ing:LABSPEC Repository 05/11/2017 [id number] Ambulatory [place] 3 [facility] ing:LAB Repository 05/02/2017 [id number] Ambulatory [place] 9 [facility] ing:HPRAD Repository 03/27/2017 [id number] Ambulatory [place] 4 [facility] ing:HPRAD Repository 03/09/2017 [id number] [facility] [place] [facility] Repository C 03/02/2017 [id number] Ambulatory [place] 4 [facility] ing:OLS.[facility] Repository C 02/27/2017 [id number] Ambulatory [place] 3 [facility] ing:OLS.[facility] Repository C 02/12/2017/ [id number] Emergency [place] 7 2 [facility] ing:ED Repository PAYERS PAYERS ENCOUNTER GUARANTOR PAYER SUBSCRIBER SOURCE 01/30/2018 [place] J Primary [place] J [place] [id number] Insurance:MEDICARE HoutsDOB: [facility] [id number] Number: Repository [id number]: [id number] [phone] Date:2018-01-18 () 01/30/2018 Secondary [place] J [place] Insurance:EQUITABLE HoutsDOB: Community LIFE AND CASUALTY [id number] Number: Repository [id number] Date:0667-51-20KX [address] [address]PH: 01/30/2018 Tertiary NOT GIVENUNK [place] Insurance:SELF PAY [facility] Number: Effective Repository Date:2018-01-18 01/28/2018 [place] J Primary [place] J [place] [id number] Insurance:MEDICARE HoutsDOB: [facility] [id number] Number: Repository [address]Udf: [id number] [phone] Date:2018-01-28 () 01/28/2018 Secondary [place] J [place] Insurance:EQUITABLE HoutsDOB: Community LIFE AND CASUALTY [id number] Medical Center Number: Repository [id number] Date:7767-70-15MR [address] [address]LQ: 01/28/2018 Tertiary NOT GIVENUNK [place] Insurance:SELF PAY [facility] Number: Effective Repository Date:2018-01-28 09/17/2017 [place] J Primary [place] J [place] [id number] Insurance:MEDICARE HoutsDOB: [facility] [id number] Number: Repository [id number]: [id number] [phone] Date:2005-05-15 (HP) 09/17/2017 Secondary [place] J [place] Insurance:EQUITABLE HoutsDOB: Community LIFE AND CASUALTY [id number] Medical Center Number: Repository [id number] Date:7015-29-67KR [address] [address]KR: 09/17/2017 Tertiary NOT GIVENUNK [place] Insurance:SELF PAY [facility] Number: Effective Repository Date:2017-09-11 08/28/2017 [place] J Primary [place] J [place] [id number] Insurance:MEDICARE HOUTSDOB: [facility] [id number] Number: Repository [address]Inu: 330 [id number] [phone] () Date:2005-05-15 08/28/2017 Secondary [place] J [place] Insurance:EQUITABLE HOUTSDOB: Community LIFE AND CASUALTY [id number] Medical Center Number: Repository [id number] Date:[id number] [address]JT: 06/26/2017 J[place] J Primary [place] J [place] [id number] Insurance:MEDICARE HOUTSDOB: [facility] [id number] Number: Repository [phone]: 330 [id number] [phone] () Date:2005-05-15 06/26/2017 Secondary [place] J [place] Insurance:EQUITABLE HOUTSDOB: [facility] LIFE AND CASUALTY [id number] Medical Center Number: Repository [id number] Date:7971-15-09JM[address] [address]CL: 05/12/2017 [place] J Primary [place] J [place] [id number] Insurance:MEDICARE HOUTSDOB: [facility] [id number] Number: Repository [id number]: [phone] [id number] [phone] (HP) Date:2005-05-15 05/12/2017 Secondary [place] J [place] Insurance:EQUITABLE HOUTSDOB: Community LIFE AND CASUALTY [id number] Number: Repository [id number] Date:3435-99-21TL [address] [address]HQ: 05/11/2017 [place] J Primary [place] J [place] [id number] Insurance:MEDICARE HOUTSDOB: [facility] [id number] Number: Repository [address]Yar: 330 [id number] [phone] (HP) Date:2005-05-15 05/11/2017 Secondary [place] J [place] Insurance:EQUITABLE HOUTSDOB: Community LIFE [employer] CASUALTY [id number] Medical Center Number: Repository [id number] Date:5646-79-20QZ [address] [address]VR: 05/02/2017 [place] J Primary JAMAIAC J [place] [id number] Insurance:MEDICARE HOUTSDOB: [facility] [id number] Number: Repository [id number]: [phone] [id number] [phone] (HP) Date:2005-05-15 05/02/2017 Secondary [place] J [place] Insurance:EQUITABLE HOUTSDOB: Community LIFE [employer] CASUALTY [id number] [facility] Number: Repository [id number] Date:9539-16-32YM [address] [address]EO: 03/27/2017 [place] J Primary [place] J [place] [id number] Insurance:MEDICARE HOUTSDOB: [facility] [id number] Number: Repository [id number]: [phone] [id number] [phone] () Date:2005-05-15 03/27/2017 Secondary [place] J [place] Insurance:EQUITABLE HOUTSDOB: Community LIFE AND CASUALTY [id number] Medical Center Number: Repository [id number] Date:1308-71-47DO [place] [address]WP: 02/12/2017 [place] J Primary [place] J [place] [id number] Insurance:MEDICARE HOUTSDOB: [facility] [id number] Number: Repository [id number]: [phone] [id number] [phone] () Date:2005-05-15 02/12/2017 Secondary [place] J [place] Insurance:EQUITABLE HOUTSDOB: [facility] LIFE AND CASUALTY [id number] Medical Center Number: Repository [id number] Date:1054-25-17QD [address] [address]EI: 02/12/2017 Tertiary [place] J [place] Insurance:PAUL HOUTSDOB: [facility] [id number] Number: Repository [id number] Date:[address] [place], [place] [address]NL:
[2018-10-21 09:12] VITALS: BMI 38.3
--- NOTE | 2018-11-14 12:38 | ECHOD_ITS ---
Reason For Study: PREV Inferior KS Procedure This was a 2D Doppler, Color Flow transthoracic echocardiogram. The study was technically difficult. Exam performed in department. Left Ventricle Normal size and thickness. The estimated ejection fraction is 65 %. Stage 1 diastolic dysfunction. No regional wall motion abnormalities noted. Right Ventricle Normal size and thickness. Normal systolic function. Atria Normal left atrium. Normal right atrium. Normal atrial septum. Mitral Valve The mitral valve is structurally normal. No prolapse or stenosis seen. Tricuspid Valve Normal tricuspid valve. Trivial tricuspid valve insufficiency. Right ventricular systolic pressure estimated to be 19 mmHg. Aortic Valve Normal aortic valve. Trisinus/trileaflet aortic valve. Pulmonic Valve Normal pulmonic valve. Great Vessels Normal aortic root. Normal arch. Normal inferior vena cava. Inferior vena cava collapse with sniff. Pericardium/Pleural No pericardial effusion. MMode/2D Measurements & Calculations LVIDd: 4.2 cm IVSd: 0.85 cm Ao root diam: 2.9 cm LVIDs: 2.6 cm LVPWd: 1.1 cm RVDd: 2.4 cm FS: 37.5 % LAV(MOD-bp): 51.6 ml LA A4 area: 18.3 cm2 RA A4 area: 18.4 cm2 LAV(MOD-bp) Indexed: 27.3 ml/m2 LAV(MOD-sp2): 50.2 ml LAV(MOD-sp4): 50.4 ml Doppler Measurements & Calculations MV E max antony: 53.8 cm/sec Lat Peak E' Antony: 7.2 cm/sec Med Peak E' Antony: 6.6 cm/sec MV A max antony: 86.4 cm/sec E/E' lat: 7.4 E/E' med: 8.1 MV E/A: 0.62 Ao V2 max: 130.1 cm/sec LV V1 max: 109.2 cm/sec PA V2 max: 106.2 cm/sec Ao max P.8 mmHg LV V1 max P.8 mmHg Interpretation Summary The estimated ejection fraction is 65 %. Stage 1 diastolic dysfunction. Trivial tricuspid valve insufficiency. Right ventricular systolic pressure estimated to be 19 mmHg. Compared to echo report dated 02/07/2018, no appreciable changes noted. Ordering Physician: AMBERLY Dave Referring Physician: AMBERLY Dave Performed By: Elizabeth Tejeda, FELA, RVT
== END ==
PROVIDERS: Family Provider Internal Medicine; PCP Internal Medicine; Referring Provider Nurse Practitioner Gerontology; Visit Provider Nurse Practitioner Gerontology
DX: I25.2 Old myocardial infarction (principal)
CPT/HCPCS: 93306

== ENCOUNTER → 2018-11-26 12:54 | Outpatient (CLI) | payer MEDICARE, OTHER, SELFPAY ==
[2018-10-21 09:12] VITALS: BMI 38.3
[2018-11-26 14:08] LABS: Amphetamine Urine VISTA NEGATIVE (<1000 ng/mL); Barbiturate Urine VISTA NEGATIVE (< 200 ng/mL); Benzodiazepine Urine VISTA NEGATIVE (< 200 ng/mL); Cocaine Urine VISTA NEGATIVE (< 300 ng/mL); Ecstacy Urine VISTA NEGATIVE (< 500 ng/mL); Methadone Urine VISTA NEGATIVE (< 300 ng/mL); PCP Urine VISTA NEGATIVE (< 25 ng/mL); THC Urine VISTA NEGATIVE (< 50 ng/mL); Vista UDS pH Range 5
== END ==
PROVIDERS: Family Provider Internal Medicine; PCP Internal Medicine; Referring Provider Anesthesiology Pain Medicine; Visit Provider Anesthesiology Pain Medicine
DX: F11.20 Opioid dependence, uncomplicated (principal)
CPT/HCPCS: 80307

== ENCOUNTER → 2018-12-10 12:10 | Outpatient (CLI) | payer MEDICARE, OTHER, SELFPAY ==
[2018-10-21 09:12] VITALS: BMI 38.3
--- NOTE | 2018-12-10 12:13 | BI_ITS ---
MAMMOGRAPHY - BILATERAL SCREENING REASON FOR EXAM: Female, 78 years old. Routine annual screening examination. PERTINENT HISTORY: Non-contributory. Remote right excisional breast biopsy. Occasional right breast tenderness. TECHNIQUE: Digital bilateral breast mickey (3D mammographic acquisition) in the CC and MLO projections. 2-D mediolateral oblique (MLO) and craniocaudad (CC) views of both breasts were obtained. CAD: Full Field Digital Mammography with Computer Added Detection was performed. COMPARISON: Comparison is made with prior study dated May 02, 2016 and September 17, 2017. FINDINGS: Breast Composition: There are scattered areas of fibroglandular density. There are no dominant masses or suspicious calcifications. Stable small bilateral axillary lymph nodes. No other significant abnormalities are identified. There has been no significant change since the prior study. BI/SCREENING MAMM (CAD), BILAT IMPRESSION: Stable bilateral screening mammogram. Yearly follow-up mammogram recommended. (A) ASSESSMENT CATEGORY: BIRADS Category 2: Benign. A letter regarding these results will be sent to the patient by the facility within 30 days. Approximately 10% of breast cancers are not detected by mammography. A normal mammogram should not delay biopsy of a clinically suspicious abnormality. [id number] Electronically Signed: Michael Sutherland, at 14:35 EST , Service support ,
--- NOTE | 2018-12-10 12:18 | BD_ITS ---
STUDY: DUAL ENERGY X-RAY ABSORPTIOMETRY / DXA REASON FOR EXAM: Female, 78 years old. The patient is postmenopausal. Loss of height. TECHNIQUE: Bone Mineral Density (BMD) measurements of lumbar spine and right forearm were obtained. The patient is status post bilateral hip replacement. COMPARISON: Comparison is made with prior study dated April 06, 2015. FINDINGS: Lumbar Spine (L1-L4): g/cm2 (0.851) / T-score (-2.9) / Z-score (-1.1) Findings are suggestive of osteoporosis with a high fracture risk. Right Forearm: g/cm2 (0.668) / T-score (-2.4) / Z-score (0.2) The T-Scores on the most recent prior examination were: Lumbar Spine (L1-L4): There has been worsening of bone density since the previous examination. BD/Dexa Bone Density Study IMPRESSION: The patient is considered osteoporotic as outlined below according to World Evin Organization (WHO) criteria with a high fracture risk. There has been worsening of bone density since the previous examination. Reference Information: The T-score is the number of standard deviations above or below the standard which is normal for young adults at their peak bone mineral density. The World Health Organization (WHO) interprets the T-scores as follows: Above -1 Normal bone density Between -1 and -2.5 Osteopenia Equal to / or below -2.5 Osteoporosis As a practical clinical guideline, osteopenia may be graded as follows: Mild -1 through -1.5 Moderate -1.6 through -2.0 Severe -2.1 through -2.4 The Z-score is the number of standard deviations above or below age-matched controls. A Z-score of less than -1.5 would be considered abnormal. References: 1. NIH Osteoporosis and Related Bone Diseases http://www.osteo.org 2. International Society for Clinical Densitometry http://www.iscd.org 3. National Osteoporosis Foundation http://www.nof.org Electronically Signed: Michael Sutherland, at 11:11 EST , Service support ,
== END ==
PROVIDERS: Family Provider Internal Medicine; PCP Internal Medicine; Visit Provider Internal Medicine
DX: Z12.31 Encounter for screening mammogram for malignant neoplasm of breast (principal); Z78.0 Asymptomatic menopausal state
CPT/HCPCS: 77063; 77067; 77080

== ENCOUNTER 2019-07-01 18:46 | Emergency (ER) | payer MEDICARE, OTHER, SELFPAY ==
[2018-10-21 09:12] VITALS: BMI 38.3
[2019-07-01 18:47] VITALS: BP 158/85; PULSE 79; RESP 16; TEMP 37; O2SAT 94; BMI 37.4
--- NOTE | 2019-07-01 19:13 | EKG12_ITS ---
Test Reason : HTN Blood Pressure : / mmHG Vent. Rate : 062 BPM Atrial Rate : 062 BPM P-R Int : 132 ms QRS Dur : 082 ms QT Int : 418 ms P-R-T Axes : 019 -33 016 degrees QTc Int : 424 ms Normal sinus rhythm Left axis deviation Inferior infarct , age undetermined Abnormal ECG Confirmed by NASIM LARIOS, NEIL ([id number]), managing editor CANDACE HERNANDEZ ([id number]) on 07/04/2019 1:51:19 PM Referred By: GILMER Confirmed By:GARFIELD ROUSE MD
[2019-07-01 19:43] LABS: Anion Gap 6 (5-15); BUN 16 mg/dL (7-18); BUN/Creat Ratio 19.5 RATIO (10-20); Calcium,Total 9.3 mg/dL (8.5-10.1); Chloride 106 mmol/L (98-107); Creatinine, Serum 0.82 mg/dL (0.55-1.02); EST Glomerular Filtration Rate 72 mL/min (>60); Est Glom Filt Rate - Afr Amer 87 mL/min (>60); Estimated Creatinine Clearance 41.98 ml/min; Glucose 75 mg/dL (74-106); Potassium 3.8 mmol/L (3.5-5.1); Sodium Level 141 mmol/L (136-145)
[2019-07-01 21:00] VITALS: BP 142/75; PULSE 67; RESP 16; O2SAT 94
--- NOTE | 2019-07-01 21:29 | ED.VIS.GEN ---
History of Present Illness Chief Complaint: Hypertension Informant: Patient Onset: Days - 3 Context: Gradual Onset Timing: Continuous Quality: nervous/shaky inside Location: all over Current Severity: Mild Maximum Severity: Mild Worsened by: nothing Relieved by: nothing Associated Symptoms: none Narrative: Patient states she did some routine checks of her blood pressure at home which she does not infrequently, they were in the 140s systolic and 90s diastolic at the highest. These numbers concern her. She is on Norvasc, HCTZ, losartan and has been compliant with those with no changes recently. Has not been on it recently. She is on that for lower extremity edema, she states that is chronic and similar to usual right now. She denies any other symptoms. - Past Medical History (1) HTN (hypertension) Status: Chronic (2) Hyperlipidemia Status: Chronic (3) Obesity Status: Chronic Past Medical History - Allergies and Home Meds Allergies/Adverse Reactions: Allergies hydromorphone HCl [From [facility]] Allergy (Verified 10/21/18 09:20) Hives venom-honey bee [bee venom (honey bee)] Allergy (Verified 10/21/18 09:20) Hives Primary Care Physician: Cinthia Quiroz DO [Primary Care Provider] - Surgical History: cholecystectomy - Bilateral hysterectomy secondary to dysfunctional uterine bleeding, colectomy - Partial colectomy for what sounds like diverticulitis by Dr. Luong., hysterectomy, total hip arthroplasty - Bilateral, total knee arthroplasty - Right Lives: Spouse/ Significant Other Smoking Status: Never smoker Drugs: None - Family History Maternal Family History: Family History (Last Reviewed 10/21/18 @ 09:23 by Betty Hanson) Father CAD (coronary artery disease) CVA (cerebral vascular accident) Brother CAD (coronary artery disease) Family History: Reports: - - Patient's mother in a skilled nursing at the age of 96 and did have some heart disease. Paternal Family History: Family History (Last Reviewed 10/21/18 @ 09:23 by Betty Hanson) Father CAD (coronary artery disease) CVA (cerebral vascular accident) Brother CAD (coronary artery disease) Family History: Reports: No pertinent history, - - Father of kidney disease Sibling Family History: Family History (Last Reviewed 10/21/18 @ 09:23 by Betty Hanson) Father CAD (coronary artery disease) CVA (cerebral vascular accident) Brother CAD (coronary artery disease) Family History: Reports: Heart Disease - Her brother Review of Systems General: Reports: Malaise. Denies: Chills, Fever, Sweats Eyes: Denies: Visual changes - bilaterally, Diplopia ENT: Denies: Rhinorrhea, Sore throat Cardiovascular: Denies: Chest pain, Palpitations Respiratory: Denies: Dyspnea, Cough, Dyspnea on exertion Gastrointestinal: Denies: Abdominal pain, Nausea, Vomiting, Diarrhea, Melena, Hematochezia Genitourinary: Denies: Dysuria, Hematuria, Frequency Musculoskeletal: Reports: Swelling. Denies: Back pain, Extremity Pain Skin: Denies: Rash, Wounds Neurological: Denies: Headache, Weakness, Numbness Physical Exam Vital Signs/Narrative: Vital Signs Temp Pulse Resp BP Pulse Ox 07/01/19 21:00 67 16 142/75 H 94 07/01/19 18:47 98.6 F 79 16 158/85 H 94 Inital Vital Signs reviewed: Yes General: Well nourished, Well developed, No Acute Distress Head: Normocephalic, Atraumatic Eyes: Perrl, EOMI ENT: Moist mucous membranes, No rhinorrhea Neck: Supple, Nontender Cardiovascular: Regular rate, Regular rhythm, No murmurs Respiratory: No distress, CTA bilaterally, Chest nontender Abdomen: Soft, Nontender, Nondistended, Normal bowel sounds Back: Nontender, Normal Inspection Extremities: Nontender, Edema - 1+ BLE to knees, nonpitting Skin: Normal color, No rash, No Trauma Neurological: Alert, Oriented x3, Cranial nerves II-XII grossly intact, Normal Strength, Normal Sensation, Normal Gait, - - tremor head Psychological: Normal affect, Normal Mood Diagnostic/Tx/Re-eval Laboratory Tests 07/01/19 Range/Units 19:20 Sodium 141 (136-145) mmol/L Potassium 3.8 (3.5-5.1) mmol/L Chloride 106 (98-107) mmol/L Carbon Dioxide 29.0 (21.0-32.0) mmol/L Anion Gap 6 (5-15) BUN 16 (7-18) mg/dL Creatinine 0.82 (0.55-1.02) mg/dL Estim Creat Clear Calc 41.98 ml/min Est GFR (MDRD) Af Amer 87 (>60) mL/min Est GFR (MDRD) Non-Af 72 (>60) mL/min BUN/Creatinine Ratio 19.5 (10-20) RATIO Glucose 75 (74-106) mg/dL Calcium 9.3 (8.5-10.1) mg/dL - Rhythm Strip Rhythm Strip: Sinus Rhythm Rate: 60 Ectopy: None - EKG Initial EKG Interpretation: Sinus Rhythm, No Acute Injury Pattern, - - Leftward axis Prior: Unchanged - Medical Decision Making Patient had no acute symptoms or telemetry events while in the emergency department, her EKG is normal for her and unchanged, chemistry panel/renal function is unremarkable/normal. Her blood pressure was repeated and is 142/75. I reassured her, she is stable to be discharged home. She has no furosemide right now, she was taking 20 mg twice daily, I will give her a prescription for several to take once daily, she can wait to take the first 1 since it is nighttime right now. She will follow-up with her next week and is comfortable with that plan. ED Disposition - Plan for ED Patient: Disposition: Home or Assisted Living Diagnosis: Episode of hypertension, Bilateral lower extremity edema Instructions: HYPERTENSION, Established Prescriptions: Furosemide [Lasix] 20 mg PO DAILY PRN #5 tab PRN Reason: Swelling Transmission Status: Pending to [id number] Referrals: Cinthia Quiroz DO [Primary Care Provider] - 5-7 Days
== END 2019-07-01 22:00 | disposition home or self-care (01) ==
PROVIDERS: Emergency Provider Emergency Medicine; Family Provider Internal Medicine; PCP Internal Medicine
DX: I10 Essential (primary) hypertension (principal); R60.0 Localized edema; E78.5 Hyperlipidemia, unspecified; E66.9 Obesity, unspecified; Z79.899 Other long term (current) drug therapy
CPT/HCPCS: 80048; 93005; 99284; A4216

== ENCOUNTER → 2019-07-29 | Outpatient (CLI) | payer MEDICARE, OTHER, SELFPAY ==
[2019-07-01 18:47] VITALS: BMI 37.4
[2019-07-29 15:48] LABS: Amphetamine Urine VISTA NEGATIVE (<1000 ng/mL); Barbiturate Urine VISTA NEGATIVE (< 200 ng/mL); Benzodiazepine Urine VISTA NEGATIVE (< 200 ng/mL); Cocaine Urine VISTA NEGATIVE (< 300 ng/mL); Ecstacy Urine VISTA NEGATIVE (< 500 ng/mL); Methadone Urine VISTA NEGATIVE (< 300 ng/mL); PCP Urine VISTA NEGATIVE (< 25 ng/mL); THC Urine VISTA NEGATIVE (< 50 ng/mL); Vista UDS pH Range 5
== END | disposition home or self-care (01) ==
LOC: LAB 14:29
PROVIDERS: Family Provider Internal Medicine; PCP Internal Medicine; Referring Provider Anesthesiology Pain Medicine; Visit Provider Anesthesiology Pain Medicine
DX: F11.20 Opioid dependence, uncomplicated (principal)
CPT/HCPCS: 80307

== ENCOUNTER 2019-08-27 07:26 | Emergency (ER) | payer MEDICARE, OTHER, SELFPAY ==
[2019-08-27 07:27] VITALS: BP 164/110; PULSE 111; RESP 22; TEMP 36.7; O2SAT 98; BMI 37.4
--- NOTE | 2019-08-27 07:42 | RAD_ITS ---
STUDY: X-RAY CHEST REASON FOR EXAM: Female, 79 years old. 2 day history of shortness of breath and bilateral lower extremity edema. TECHNIQUE: PA and lateral views of the chest. COMPARISON: Comparison is made with prior study of August 29, 2018. FINDINGS: Stable mild increased markings at the lung bases suggestive of bibasilar scarring. There is no demonstrated pleural abnormality. Normal size heart. Normal mediastinum and brandon. Normal visualized pulmonary arteries. There is atherosclerotic calcification of the aortic arch with tortuosity. There is demineralization of the osseous structures. Increased kyphosis. Normal visualized ribs, clavicles, and shoulders. There is no demonstrated abnormality of the visualized soft tissue structures of the upper abdomen. RAD/Chest PA and Lateral IMPRESSION: Stable mild increased linear markings at the lung bases suggestive of scarring. Increased kyphosis. Electronically Signed: Michael Sutherland, at 9:36 EST , Service support ,
--- NOTE | 2019-08-27 07:43 | VDLE_ITS ---
Reason For Study: Swelling Procedure LEFT Exam performed portable in ED. GSV is normal. A preliminary report was called and/or faxed CFV is compressible, spontaneous, phasic, to ED. competent, and demonstrates normal augmentation. FV is compressible, spontaneous, phasic, competent and demonstrates normal augmentation. POP V is compressible, spontaneous, phasic, competent and demonstrates normal augmentation. T/P Trunk is compressible. PTV is compressible. LT PerV is compressible. Interpretation Summary There is no evidence of left lower extremity deep vein thrombosis. Left great saphenous vein appears patent and compressible segmentally. Ordering Physician: Yann Solis Referring Physician: Cinthia Quiroz M.D. Performed By: Berta Lin RVT
--- NOTE | 2019-08-27 07:44 | ED.VIS.GEN ---
History of Present Illness Chief Complaint: Edema Informant: Patient Onset: Month(s) - 1 Context: Gradual Onset Timing: Continuous Quality: swollen Location: LLE worse than RLE Current Severity: Severe Maximum Severity: Severe Worsened by: nothing in particular Relieved by: elevating legs Associated Symptoms: leaking fluid LLE x 2d. no other acute associated new sx. Narrative: Patient was seen here about 2 months ago for edema in the legs and high blood pressure. She did not follow-up with her doctor or see anyone else until her visit to the ER now. She states the edema is getting worse, and for the past month or so it has been specifically worse on the left more so than the right. In the last couple days she has been leaking fluid from her left leg. She denies any systemic symptoms such as fevers, chest pain, shortness of breath, weakness/fatigue, but when asked about dyspnea she states that she sometimes does feel dyspneic but attributes it to her asthma which flares up randomly, for short periods of time, year-round, and she gives me the same response when asked about orthopnea. However, for the most part she does not have orthopnea every time she lies down. She does not know how long she has had the edema total. In October of this year, 11 months ago, she had a visit with the [facility] that showed she had no edema and the patient confirms that is true. She had an echo at that time that showed mild diastolic dysfunction, trivial tricuspid insufficiency, and was otherwise fairly unremarkable with a normal ejection fraction. She has had no medication changes recently, has not run out of her medications, and states she has been compliant with them since her last visit here in the ER. She does say that she is urinating more than usual, but without any pain. She denies having any pain in her legs, they just feel tight from the swelling. No history of DVT, takes no anticoagulants, no bleeding from anywhere, no recent travel, hospitalization, immobilization, or surgeries. - Past Medical History (1) HTN (hypertension) Status: Chronic (2) Hyperlipidemia Status: Chronic (3) Obesity Status: Chronic (4) Syncope Status: Chronic Past Medical History - Allergies and Home Meds Allergies/Adverse Reactions: Allergies hydromorphone HCl [From [facility]] Allergy (Verified 08/27/19 07:26) Hives venom-honey bee [bee venom (honey bee)] Allergy (Verified 08/27/19 07:26) Hives Primary Care Physician: Cinthia Quiroz DO [Primary Care Provider] - Surgical History: cholecystectomy - Bilateral hysterectomy secondary to dysfunctional uterine bleeding, colectomy - Partial colectomy for what sounds like diverticulitis by Dr. Luong., hysterectomy, total hip arthroplasty - Bilateral, total knee arthroplasty - Right Lives: Spouse/ Significant Other Smoking Status: Never smoker Drugs: None - Family History Maternal Family History: Family History (Last Reviewed 10/21/18 @ 09:23 by Betty Hanson) Father CAD (coronary artery disease) CVA (cerebral vascular accident) Brother CAD (coronary artery disease) Family History: Reports: - - Patient's mother in a residential at the age of 96 and did have some heart disease. Paternal Family History: Family History (Last Reviewed 10/21/18 @ 09:23 by Betty Hanson) Father CAD (coronary artery disease) CVA (cerebral vascular accident) Brother CAD (coronary artery disease) Family History: Reports: No pertinent history, - - Father of kidney disease Sibling Family History: Family History (Last Reviewed 10/21/18 @ 09:23 by Betty Hanson) Father CAD (coronary artery disease) CVA (cerebral vascular accident) Brother CAD (coronary artery disease) Family History: Reports: Heart Disease - Her brother Review of Systems General: Denies: Chills, Fever, Sweats Eyes: Denies: Visual changes - bilaterally, Diplopia ENT: Denies: Bilateral ear pain, Rhinorrhea, Sore throat Cardiovascular: Denies: Chest pain, Palpitations Respiratory: Reports: Dyspnea - sometimes with my asthma, Orthopnea - sometimes with my asthma. Denies: Cough, Dyspnea on exertion Gastrointestinal: Denies: Abdominal pain, Nausea, Vomiting, Diarrhea, Melena, Hematochezia Genitourinary: Denies: Dysuria, Hematuria, Frequency Musculoskeletal: Reports: Swelling. Denies: Neck pain, Back pain, Extremity Pain Skin: Denies: Rash, Wounds Neurological: Denies: Headache, Weakness, Numbness Endocrine: Reports: Polyuria. Denies: Polydipsia, Heat intolerance, Cold intolerance Physical Exam Vital Signs/Narrative: Vital Signs Temp Pulse Resp BP Pulse Ox 08/27/19 07:27 98.0 F 111 H 22 H 164/110 H 98 Inital Vital Signs reviewed: Yes General: Well nourished, Well developed, Obese, No Acute Distress Head: Normocephalic, Atraumatic Eyes: Perrl, EOMI ENT: Moist mucous membranes, No rhinorrhea Neck: Supple, Nontender, No JVD Cardiovascular: Regular rate, Regular rhythm, No murmurs Respiratory: No distress, CTA bilaterally, Chest nontender Abdomen: Soft, Nontender, Nondistended, Normal bowel sounds Back: Nontender, Normal Inspection, - - kyphotic Extremities: Nontender, Edema - 2+ RLE to knee; 3+ LLE to knee Skin: Normal color - except for mild nontender blanching erythema distal half of left lower leg, No rash, No Trauma, - - pinpoint-sized break in skin distal left fong, appears very superficial, actively slowly leaking clear fluid, without any tenderness or erythema or signs of infection Neurological: Alert, Oriented x3, Cranial nerves II-XII grossly intact, Normal Strength, Normal Sensation, Normal Gait, - - resting tremor mainly truncal Psychological: Normal affect, Normal Mood Diagnostic/Tx/Re-eval Impressions Chest X-Ray 08/27/19 07:42 IMPRESSION: Stable mild increased linear markings at the lung bases suggestive of scarring. Increased kyphosis. Electronically Signed: Michael Sutherland, at 9:36 EST , Service support , 08/27/19 07:42 Chest PA and Lateral [RAD] Stat Laboratory Results 08/27/19 08/27/19 08/27/19 07:55 07:55 07:55 WBC 8.2 RBC 4.82 Hgb 14.2 Hct 44.0 MCV 91.3 MCH 29.5 MCHC 32.3 RDW Std Deviation 51.5 H RDW Coeff of Toño 15.4 H Plt Count 316 MPV 9.0 Immature Gran % (Auto) 0.400 Neut % (Auto) 61.2 Lymph % (Auto) 25.0 [place] % (Auto) 9.1 Eos % (Auto) 3.6 Baso % (Auto) 0.7 Absolute Neuts (auto) 5.0 Absolute Lymphs (auto) 2.04 Nucleated RBC % 0 Sodium 141 Potassium 3.8 Chloride 107 Carbon Dioxide 28.0 Anion Gap 6 BUN 15 Creatinine 0.83 Estim Creat Clear Calc 41.47 Est GFR (MDRD) Af Amer 85 Est GFR (MDRD) Non-Af 70 BUN/Creatinine Ratio 18.0 Glucose 105 Calcium 9.0 Troponin I < 0.015 B-Natriuretic Peptide 38.9 Urine Color Urine Clarity Urine pH Ur Specific [place] Urine Protein Urine Glucose (UA) Urine Ketones Urine Occult Blood Urine Nitrite Urine Bilirubin Urine Urobilinogen Ur Leukocyte Esterase Urine RBC Urine WBC Ur Squamous Epith Cells Urine Bacteria Urine Mucus 08/27/19 07:55 WBC RBC Hgb Hct MCV MCH MCHC RDW Std Deviation RDW Coeff of Toño Plt Count MPV Immature Gran % (Auto) Neut % (Auto) Lymph % (Auto) [place] % (Auto) Eos % (Auto) Baso % (Auto) Absolute Neuts (auto) Absolute Lymphs (auto) Nucleated RBC % Sodium Potassium Chloride Carbon Dioxide Anion Gap BUN Creatinine Estim Creat Clear Calc Est GFR (MDRD) Af Amer Est GFR (MDRD) Non-Af BUN/Creatinine Ratio Glucose Calcium Troponin I B-Natriuretic Peptide Urine Color Yellow Urine Clarity Sl. Cloudy Urine pH 7.0 Ur Specific [place] 1.010 Urine Protein Negative Urine Glucose (UA) Normal Urine Ketones Negative Urine Occult Blood 10 H Urine Nitrite Negative Urine Bilirubin Negative Urine Urobilinogen Normal Ur Leukocyte Esterase Negative Urine RBC 0-5 SEEN Urine WBC 0 SEEN Ur Squamous Epith Cells 0-5 SEEN Urine Bacteria 0 SEEN Urine Mucus 0 SEEN - Medical Decision Making Labs are all normal. This includes troponin and BNP, renal function, blood counts. DVT evaluation of the left lower extremity is negative. Chest x-ray shows chronic findings and no CHF. Therefore her prior echocardiogram findings of trivial tricuspid regurgitation and diastolic dysfunction are likely not the acute cause or acutely worse. She can follow-up as an outpatient. I gave her some Lasix which helped her urinate some more, I will prescribe her more of that, her blood pressure came down to 137/70. I reinforced the fact that she really needs to follow-up with her doctor. The edema may be poor venous circulation in her legs. She may need further testing. She is comfortable with this plan. With regards to the area that is leaking clear fluid in her leg, she needs to keep an eye on it, to which she can to prevent infection which we discussed, and when the leaking stops, put an antibiotic bandage on it. ED Disposition - Plan for ED Patient: Disposition: Home or Assisted Living Diagnosis: Bilateral lower extremity edema, Accelerated hypertension Instructions: ED Peripheral Edema, Bilateral Prescriptions: Furosemide [Lasix] 20 mg PO BID 10 Days #20 tab Transmission Status: Pending to [id number] Referrals: Cinthia Quiroz DO [Primary Care Provider] - 5-7 Days
[2019-08-27] MEDS: Furosemide 20 MG/2 ML VIAL IV (07:56)
[2019-08-27 08:01] LABS: Bacteria 0 SEEN /hpf (None Seen); Mucous, Urine 0 SEEN /hpf (<or=2+); White Blood Cells 0 SEEN /hpf (0-5)
[2019-08-27 08:03] LABS: Absolute Lymphocyte Count 2.04 X10^3/uL (0.83-4.51); Basophil# 0.06 X10^3/uL; Basophil% 0.7 % (0-1); Color, Urine Yellow (Yellow); Eosinophil# 0.29 X10^3/uL; Eosinophils% 3.6 % (0-5); Glucose, Dipstick Normal (Normal); Hemoglobin 14.2 g/dL (12.0-15.0); Ketone-Dipstick Negative (Negative); Leukocyte Esterase-Dipstick Negative /ul (Negative); Lymphocyte # 2.04 X10^3/ul (4.0); Mean Corp Hgb Conc 32.3 g/dL (32-36); Mean Corpuscular Hgb 29.5 pg (27.0-32.0); Mean Corpuscular Volume 91.3 fL (81-99); Monocyte# 0.74 X10^3/uL; Monocyte% 9.1 % (0-10); NRBC Flagged by Analyzer 0 % (0-5); Neutrophil # 4.99 X10^3/uL (2.7-7.7); Neutrophil % 61.2 % (47-70); Nitrite-Dipstick Negative (Negative); Occult Blood-Urine 10 /ul (Negative); Platelet Count 316 K/mm3 (150-450); Protein-Dipstick Negative (Negative); RBC Distribution Width CV 15.4 % (11.6-14.6); RBC Distribution Width SD 51.5 fl (35.1-43.9); Red Blood Count 4.82 M/mm3 (4.2-5.4); Urine Bilirubin Dipstick Negative (Negative); Urine Clarity Sl. Cloudy (Clear); Urine Urobilinogen Normal (Normal); White Blood Count 8.2 K/mm3 (4.4-11.0)
[2019-08-27 08:14] LABS: Red Blood Cells-Urine 0-5 SEEN /hpf (0-5); Squamous Epithelial Cells - UA 0-5 SEEN /hpf (5-10)
[2019-08-27 08:21] LABS: Anion Gap 6 (5-15); BUN 15 mg/dL (7-18); Chloride 107 mmol/L (98-107); Creatinine, Serum 0.83 mg/dL (0.55-1.02); EST Glomerular Filtration Rate 70 mL/min (>60); Est Glom Filt Rate - Afr Amer 85 mL/min (>60); Estimated Creatinine Clearance 41.47 ml/min; Glucose 105 mg/dL (74-106); Potassium 3.8 mmol/L (3.5-5.1); Sodium Level 141 mmol/L (136-145)
[2019-08-27 08:38] LABS: BNP,B-Type NATRIURETIC PEPTIDE 38.9 pg/mL (0-100)
[2019-08-27 09:57] VITALS: BP 137/70; PULSE 89; RESP 18; O2SAT 99
== END 2019-08-27 10:47 | disposition home or self-care (01) ==
PROVIDERS: Emergency Provider Emergency Medicine; Family Provider Internal Medicine; PCP Internal Medicine
DX: R60.0 Localized edema (principal); I10 Essential (primary) hypertension; E78.5 Hyperlipidemia, unspecified; E66.9 Obesity, unspecified; R55 Syncope and collapse; Z79.899 Other long term (current) drug therapy
CPT/HCPCS: 71046; 80048; 81001; 83880; 84484; 85025; 93971; 96374; 99284; A4216; J1940

== ENCOUNTER → 2019-09-04 15:29 | Outpatient (CLI) | payer MEDICARE, OTHER, SELFPAY ==
[2019-08-27 07:27] VITALS: BMI 37.4
--- NOTE | 2019-09-04 15:36 | US_ITS ---
STUDY: ULTRASOUND TRANSVAGINAL CLINICAL: Female, 79 years old. Leg edema . Total hysterectomy. TECHNIQUE: Transvaginal COMPARISON: None. FINDINGS: Uterus and ovaries are not identified.. Fluid noted in the right adnexa. US/Pelvic (Non ) IMPRESSION: Fluid right adnexa Electronically Signed: Killian Tuttle MD at 23:58 EST , Service support ,
== END ==
PROVIDERS: Family Provider Internal Medicine; PCP Internal Medicine; Referring Provider Internal Medicine; Visit Provider Internal Medicine
DX: R10.33 Periumbilical pain (principal)
CPT/HCPCS: 76856

== ENCOUNTER 2020-05-28 19:58 | Emergency (ER) | payer MEDICARE, OTHER, SELFPAY ==
[2020-05-28 19:59] VITALS: BP 196/102; PULSE 94; RESP 20; TEMP 36.3; O2SAT 94; BMI 35.9
--- NOTE | 2020-05-28 21:29 | ED.DCSUM_ITS ---
History of Present Illness Chief Complaint: Other, Pain/Inj Detail of Chief Complaint: left ribcage pain Informant: Patient Onset: Yesterday Context: Sudden Onset - bent over Timing: Continuous Quality: pain Location: left lower anterior ribcage Current Severity: Severe Maximum Severity: Severe Worsened by: movement, deep breathing, palpation Relieved by: remaining still, Percocet Associated Symptoms: A little short of breath due to pain Narrative: Patient states she bent over to tie her shoe yesterday and had sudden onset of severe sharp pain in her left lower rib cage. She has been feeling a little short of breath because of spikes in pain, but no sam dyspnea. No other injuries or symptoms. No nausea or vomiting. She does have a history of osteoporosis. - Past Medical History (1) Osteoporosis Status: Chronic (2) HTN (hypertension) Status: Chronic (3) Hyperlipidemia Status: Chronic Past Medical History - Allergies and Home Meds Allergies/Adverse Reactions: Allergies hydromorphone HCl [From [facility]] Allergy (Verified 05/28/20 20:01) Hives venom-honey bee [bee venom (honey bee)] Allergy (Verified 05/28/20 20:01) Hives Primary Care Physician: Cinthia Quiroz DO [Primary Care Provider] - Surgical History: cholecystectomy - Bilateral hysterectomy secondary to dysfunctional uterine bleeding, colectomy - Partial colectomy for what sounds like diverticulitis by Dr. Luong., hysterectomy, total hip arthroplasty - Bilateral, total knee arthroplasty - Right Lives: Spouse/ Significant Other Smoking Status: Never smoker - Family History Maternal Family History: Family History (Last Reviewed 10/21/18 @ 09:23 by Betty Hanson) Father CAD (coronary artery disease) CVA (cerebral vascular accident) Brother CAD (coronary artery disease) Family History: Reports: - - Patient's mother in a [place] [facility] at the age of 96 and did have some heart disease. Paternal Family History: Family History (Last Reviewed 10/21/18 @ 09:23 by Betty Hanson) Father CAD (coronary artery disease) CVA (cerebral vascular accident) Brother CAD (coronary artery disease) Family History: Reports: No pertinent history, - - Father of kidney disease Sibling Family History: Family History (Last Reviewed 10/21/18 @ 09:23 by Betty Hanosn) Father CAD (coronary artery disease) CVA (cerebral vascular accident) Brother CAD (coronary artery disease) Family History: Reports: Heart Disease - Her brother Review of Systems General: Denies: Chills, Fever, Sweats Cardiovascular: Reports: Chest pain - left lower ribcage only Respiratory: Reports: Dyspnea. Denies: Cough Gastrointestinal: Denies: Abdominal pain, Nausea, Vomiting, Diarrhea, Melena, Hematochezia Musculoskeletal: Reports: Swelling - BLE, chronic, left always worse. Denies: Neck pain, Back pain, Extremity Pain Skin: Denies: Rash, Wounds Neurological: Denies: Headache, Weakness, Numbness Physical Exam Vital Signs/Narrative: Vital Signs Temp Pulse Resp BP Pulse Ox 05/28/20 19:59 97.3 F L 94 20 H 196/102 H 94 Inital Vital Signs reviewed: Yes General: Well nourished, Well developed, Acute Distress - pain Head: Normocephalic, Atraumatic Eyes: Perrl, EOMI ENT: Moist mucous membranes, No rhinorrhea Neck: Supple, Nontender, - - Trachea midline Cardiovascular: Regular rate, Regular rhythm. Negative for: Tachycardia Respiratory: No distress, CTA bilaterally - Equal breath sounds present bilaterally, Chest tenderness - Without crepitance, left lower rib cage, and around to the posterior aspect. No subcutaneous emphysema. No flail segments or deformities. Abdomen: Soft, Nontender, Nondistended, Normal bowel sounds Back: Normal Inspection, - - Tender left rib cage. Negative for: Spinal tenderness Extremities: Nontender, Edema - Asymmetric bilateral lower extremity edema, 1+ right lower extremity to the knee, 2+ left Skin: Normal color, No rash, No Trauma Neurological: Alert, Oriented x3, Cranial nerves II-XII grossly intact, Normal Strength, Normal Sensation Psychological: Normal affect, Normal Mood Diagnostic/Tx/Re-eval Clinical Impression(s) from Imaging Studies Ribs w/Chest X-Ray 05/28/20 21:55 IMPRESSION: RIBS: Acute anterior lateral fracture of the left sixth rib with slight displacement. CHEST: Mild underlying left atelectatic lung changes. Otherwise negative for pneumothorax or pleural effusion. Electronically Signed: Chitra Hernandez MD at 22:15 EDT , Service support , - Medical Decision Making As above, patient likely has a acute rib fracture, this is probably related to her osteoporosis. I offered admission, she declined. She has Percocet at home and a good amount, and she is comfortable going home and using that. We discussed reasons to return she is comfortable with that plan. She was given morphine here along with some prophylactic Zofran, which really helped her pain a lot. ED Disposition - Plan for ED Patient: Disposition: Home or Assisted Living Diagnosis: Left rib fracture, Osteoporosis Instructions: ED Rib Fx Referrals: Cinthia Quiroz DO [Primary Care Provider] - 10-14 Days if not better
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
[2020-05-28] MEDS: Morphine 4 MG/ML Syringe IM (21:56)
[2020-05-28] MEDS: Ondansetron ODT 4 MG Tablet 8 MG PO (21:57)
[2020-05-28 22:22] VITALS: RESP 16
[2020-05-28 22:45] VITALS: BP 162/91; PULSE 93; RESP 16; O2SAT 99
== END 2020-05-28 22:47 | disposition home or self-care (01) ==
PROVIDERS: Emergency Provider Emergency Medicine; PCP Internal Medicine
DX: S22.32XA Fracture of one rib, left side, initial encounter for closed fracture (principal); M81.0 Age-related osteoporosis without current pathological fracture; X58.XXXA Exposure to other specified factors, initial encounter
CPT/HCPCS: 71101; 96372; 99282

== ENCOUNTER → 2020-07-06 14:34 | Outpatient (CLI) | payer MEDICARE, OTHER, SELFPAY ==
--- NOTE | 2020-07-06 14:37 | BI_ITS ---
MAMMOGRAPHY - BILATERAL SCREENING REASON FOR EXAM: Female, 80 years old. Routine annual screening examination. PERTINENT HISTORY: Non-contributory. Remote excisional breast biopsy. TECHNIQUE: Digital bilateral breast jolynn (3D mammographic acquisition) in the CC and MLO projections. 2-D mediolateral oblique (MLO) and craniocaudad (CC) views of both breasts were obtained. CAD: Full Field Digital Mammography with Computer Added Detection was performed. COMPARISON: Comparison is made with prior study dated 12/10/2018 and 09/17/2017. FINDINGS: Breast Composition: There are scattered areas of fibroglandular density. There are no dominant masses or suspicious calcifications. Stable benign appearing bilateral axillary lymph nodes. No other significant abnormalities are identified. There has been no significant change since the prior study. BI/SCREEN MAMM (CAD) W/JOLYNN BILAT IMPRESSION: Stable bilateral screening mammogram. Yearly follow-up mammogram recommended. (A) ASSESSMENT CATEGORY: BIRADS Category 2: Benign. A letter regarding these results will be sent to the patient by the facility within 30 days. Approximately 10% of breast cancers are not detected by mammography. A normal mammogram should not delay biopsy of a clinically suspicious abnormality. [id number] Electronically Signed: Michael Sutherland, at 15:56 EDT , Service support ,
== END ==
PROVIDERS: PCP Internal Medicine; Referring Provider Internal Medicine; Visit Provider Internal Medicine
DX: Z12.31 Encounter for screening mammogram for malignant neoplasm of breast (principal)
CPT/HCPCS: 77063; 77067

== ENCOUNTER → 2020-11-02 12:30 | Outpatient (CLI) | payer MEDICARE, OTHER, SELFPAY ==
[2020-11-02 14:01] LABS: Amphetamine Urine VISTA NEGATIVE (<1000 ng/mL); Barbiturate Urine VISTA NEGATIVE (< 200 ng/mL); Benzodiazepine Urine VISTA NEGATIVE (< 200 ng/mL); Cocaine Urine VISTA NEGATIVE (< 300 ng/mL); Ecstacy Urine VISTA NEGATIVE (< 500 ng/mL); Methadone Urine VISTA NEGATIVE (< 300 ng/mL); PCP Urine VISTA NEGATIVE (< 25 ng/mL); THC Urine VISTA NEGATIVE (< 50 ng/mL); Vista UDS pH Range 7
== END ==
PROVIDERS: PCP Internal Medicine; Referring Provider Anesthesiology Pain Medicine; Visit Provider Anesthesiology Pain Medicine
DX: F11.20 Opioid dependence, uncomplicated (principal)
CPT/HCPCS: 80307

== ENCOUNTER 2020-11-12 10:38 | Outpatient (RCR) | payer MEDICARE, OTHER, SELFPAY | END 2020-11-12 23:59 | LOC: IMMUN 10:38 | PROVIDERS: PCP Internal Medicine; Referring Provider Family Medicine; Visit Provider Family Medicine | DX: Z23 Encounter for immunization (principal) | CPT/HCPCS: 0011A; 0012A; 91301 ==

== ENCOUNTER → 2020-12-23 10:05 | Outpatient (CLI) | payer MEDICARE, OTHER, SELFPAY ==
--- NOTE | 2020-12-23 10:22 | BD_ITS ---
STUDY: DUAL ENERGY X-RAY ABSORPTIOMETRY / DXA REASON FOR EXAM: Female, 80 years old. Z780. Early menopause. Loss of height. TECHNIQUE: Bone Mineral Density (BMD) measurements of lumbar spine and right forearm were obtained. COMPARISON: Comparison is made with prior study dated 12/10/2018. FINDINGS: Lumbar Spine (L1-L4): g/cm2 (0.826) / T-score (-3.1) / Z-score (-1.3) Findings are suggestive of osteoporosis with a high fracture risk. Increased kyphosis. Right Forearm: g/cm2 (0.666) / T-score (-2.5) / Z-score (0.3) The T-Scores on the most recent prior examination were: Lumbar Spine (L1-L4): There has been worsening of bone density since the previous examination. BD/Dexa Bone Density Study IMPRESSION: The patient is considered osteoporotic as outlined below according to World Evin Organization (WHO) criteria with a high fracture risk. There has been worsening of bone density since the previous examination. Reference Information: The T-score is the number of standard deviations above or below the standard which is normal for young adults at their peak bone mineral density. The World Health Organization (WHO) interprets the T-scores as follows: Above -1 Normal bone density Between -1 and -2.5 Osteopenia Equal to / or below -2.5 Osteoporosis As a practical clinical guideline, osteopenia may be graded as follows: Mild -1 through -1.5 Moderate -1.6 through -2.0 Severe -2.1 through -2.4 The Z-score is the number of standard deviations above or below age-matched controls. A Z-score of less than -1.5 would be considered abnormal. References: 1. NIH Osteoporosis and Related Bone Diseases www osteo.org 2. International Society for Clinical Densitometry www iscd.org 3. National Osteoporosis Foundation www nof.org Electronically Signed: Michael Sutherland MD at 8:27 EDT , Service support ,
== END ==
PROVIDERS: PCP Internal Medicine; Referring Provider Internal Medicine; Visit Provider Internal Medicine
DX: Z78.0 Asymptomatic menopausal state (principal)
CPT/HCPCS: 77080

== ENCOUNTER → 2021-08-31 14:12 | Outpatient (CLI) | payer MEDICARE, OTHER, SELFPAY ==
[2021-08-31 15:11] LABS: Amphetamine Urine VISTA NEGATIVE (<1000 ng/mL); Barbiturate Urine VISTA NEGATIVE (< 200 ng/mL); Benzodiazepine Urine VISTA NEGATIVE (< 200 ng/mL); Cocaine Urine VISTA NEGATIVE (< 300 ng/mL); Ecstacy Urine VISTA NEGATIVE (< 500 ng/mL); Methadone Urine VISTA NEGATIVE (< 300 ng/mL); PCP Urine VISTA NEGATIVE (< 25 ng/mL); THC Urine VISTA NEGATIVE (< 50 ng/mL); Vista UDS pH Range 6
== END ==
PROVIDERS: PCP Internal Medicine; Visit Provider Anesthesiology Pain Medicine
DX: F11.20 Opioid dependence, uncomplicated (principal)
CPT/HCPCS: 80307

== ENCOUNTER 2021-11-24 10:00 | Outpatient (RCR) | payer MEDICARE, OTHER, SELFPAY ==
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
--- NOTE | 2021-09-02 09:07 | HP.PT.NRP ---
KARON MILLER was seen in my office for initial evaluation on 08/16/21. The following Plan of Care was established for this patient: Initial Frequency: 2-3x /Week Initial Duration: 4-6 Months Patient/Client Instruction: Educate patient on: Condition, Plan of Care, Risk Factors For the Purpose of:: To improve self management Therapeutic Exercise to Include: Strength training, Balance training, Body mechanics, Postural training, Flexibilty training, Gait and locomotor training, Neuromotor development, In an aquatic setting, Dynamic Lumbar Stabilization For the Purpose of:: To decrease pain, To improve muscle performance and motor function, To increase tolerance to activity/condition/position, To improve ability of physical actions for home/community/work/leisure, To improve gait and locomotor functions This patient was last seen in our office . Pertinent comments regarding their Physical therapy will appear below: This patient has not returned to Physical Therapy and is appropriate to return to MD for further follow-up as needed. At this point I will be discontinuing this patient from physical therapy. I would be happy to see this patient again in the future if found appropriate by the physician. Thank you! Debby Guardado, PT, Cert MDT Balance/Gait/Functional tests - Balance/Special Test Scores Oswestry Low Back Score: 27
--- NOTE | 2021-09-20 11:17 | HP.PTREVAL_ITS ---
Kisha Liu, TELEGRAPH REPEATER MECHANIC-C, It has been my pleasure to treat KARON MILLER over the last 5 visits for BACK PAIN. Please see the progress note below for an update on the physical therapy plan of care! Subjective: PATIENT REPORTS SHE HAS NOT BEEN ABLE TO COME TO PT CONSISTANTLY DUE TO THE RECENT OF HER AND MULTIPLE NICHELLE'TS. STATES SHE LIKES THE WATER EX AND SEE'S THE POTENTIAL FOR IT TO HELP HER MORE. STATES SHE FEELS SHE CAN START TO COME MORE CONSISTANTLY NOW. SHE REPORTS AT TIMES HER BACK PAIN IS A LITTLE BETTER SINCE STARTING PT. Objective/Function: PATIENT WAS SEEN TODAY FOR RE-ASSESSMENT OF PROGRESS TOWARD THE SET PT GOALS AND THE NEED FOR FURTHER PHYSICAL THERAPY VS READINESS FOR DISCHARGE. UPON EXAM TODAY THERE ARE NO SIGNIFICANT OBJECTIVE CHANGES COMPARED TO INITIAL EVAL. PATIENT THINKS SHE CAN MANAGE ABOUT 2X'S A WEEK NOW AND SHE APPEARS TO BE A GOOD CANDIDATE TO CONTINUE PT. Plan Plan: CONTINUE AQUATIC THERAPY FOR PAIN RELIEF, POSTURE CORRECTION/STRENGTHENING, INSTRUCTION IN APPROPRIATE BODY MECHANICS AND ACTIVITY MODIFICATIONS. DLS STARTING WITH A NEUTRAL SPINE PROGRESSING ROM TOLERATED. EARLINE LE ROM, STRETCHING AND STRENGTHENING. HEP INSTRUCTION. Balance/Gait/Functional tests - Balance/Special Test Scores Oswestry Low Back Score: 23 Goals Goal 1:: DECREASE C/O LOW BACK PAIN Goal Time Frame: 4-6 Weeks Goal Progress: Progressing Goal 2:: IMPROVE PERSONAL CARE, LIFTING, WALKING SITTING, STANDING, SLEEP, SOCIAL LIFE, TRAVEL AND HOMEMAKING FUNCTION. Goal Time Frame: 4-6 Weeks Goal Progress: Progressing Goal 3:: INSTRUCT IN PROPHYLAXIS Goal Time Frame: 4-6 Weeks Goal Progress: Progressing Anticipated Interventions Patient/Client Instruction: Educate patient on: Condition, Plan of Care, Risk Factors For the Purpose of:: To improve self management Therapeutic Exercise to Include: Strength training, Balance training, Body mechanics, Postural training, Flexibilty training, Gait and locomotor training, Neuromotor development, In an aquatic setting, Dynamic Lumbar Stabilization For the Purpose of:: To decrease pain, To improve muscle performance and motor function, To increase tolerance to activity/condition/position, To improve ability of physical actions for home/community/work/leisure, To improve gait and locomotor functions Please do not hesitate to contact me at [phone] by phone or if you have questions or concerns regarding this new plan of care! Sincerely, Debby Guardado, PT, Cert MDT
--- NOTE | 2021-10-20 11:58 | HP.PTREVAL ---
Kisha Liu, BUSINESS PROCESS ASSOCIATE-C, It has been my pleasure to treat KARON MILLER over the last 10 visits for BACK PAIN. Please see the progress note below for an update on the physical therapy plan of care! Subjective: PATIENT REPORTS HER WALKING IS GETTING BETTER. SHE REPORTS SHE LIKES THE WATER EX'S AND SHE FEELS THEY ARE HELPING HER. STATES THAT SHE IS FEELING MORE BENEFIT FROM THE THERAPY NOW THAT SHE IS ABLE TO COME REGULARLY (HAD TO STOP WHEN PASSED ON AND WHEN SHE GOT SICK). Objective/Function: PATIENT WAS SEEN TODAY FOR RE-ASSESSMENT OF PROGRESS TOWARD THE SET PT GOALS AND THE NEED FOR FURTHER PHYSICAL THERAPY VS READINESS FOR DISCHARGE. UPON EXAM TODAY SHE IS DEMONSTRATING IMPROVED BALANCE AND CADANCE WITH GAIT AND IS NO LONGER ACUTELY TENDER IN HER LOW BACK. SHE IS DEVELOPING BETTER CORE STABILITY AND BENEFITING FROM AQUATIC THERAPY. SHE IS A GOOD CANDIDATE TO CONTINUE AQUATIC THERPAY BASED ON PROGESS BEING MADE AND ROOM FOR FURTHER IMPROVEMENT. PATIENT IS AGREEABLE TO CONTINUEING PT. Plan Plan: CONTINUE AQUATIC THERAPY FOR PAIN RELIEF, POSTURE CORRECTION/STRENGTHENING, INSTRUCTION IN APPROPRIATE BODY MECHANICS AND ACTIVITY MODIFICATIONS. DLS STARTING WITH A NEUTRAL SPINE PROGRESSING ROM TOLERATED. EARLINE LE ROM, STRETCHING AND STRENGTHENING. HEP INSTRUCTION. Balance/Gait/Functional tests - Balance/Special Test Scores Oswestry Low Back Score: 23 Goals Goal 1:: DECREASE C/O LOW BACK PAIN Goal Time Frame: 4-6 Weeks Goal Progress: Progressing Goal 2:: IMPROVE PERSONAL CARE, LIFTING, WALKING SITTING, STANDING, SLEEP, SOCIAL LIFE, TRAVEL AND HOMEMAKING FUNCTION. Goal Time Frame: 4-6 Weeks Goal Progress: Progressing Goal 3:: INSTRUCT IN PROPHYLAXIS Goal Time Frame: 4-6 Weeks Goal Progress: Progressing Anticipated Interventions Patient/Client Instruction: Educate patient on: Condition, Plan of Care, Risk Factors For the Purpose of:: To improve self management Therapeutic Exercise to Include: Strength training, Balance training, Body mechanics, Postural training, Flexibilty training, Gait and locomotor training, Neuromotor development, In an aquatic setting, Dynamic Lumbar Stabilization For the Purpose of:: To decrease pain, To improve muscle performance and motor function, To increase tolerance to activity/condition/position, To improve ability of physical actions for home/community/work/leisure, To improve gait and locomotor functions Please do not hesitate to contact me at [phone] by phone or if you have questions or concerns regarding this new plan of care! Sincerely, Debby Guardado, PT, Cert MDT
--- NOTE | 2021-11-24 12:51 | HP.PTDCSUM ---
It has been my pleasure to treat KARON MILLER referred by Kisha Liu, AMBERLY, with the diagnosis of BACK PAIN for a total of 16 visit(s). Discharge Date: 11/24/21 Please see the following information for a summary of their discharge status. Subjective: PATIENT REPORTS SHE WENT BACK TO THE DOCTOR FOR HER ASTHMA AND GOT MORE MEDICINE AND IT HELPED SOME. PATIENT REPORTS THE WATER EX'S AND THE HOME EX'S ARE HELPING NOW. PATIENT REPORTS SHE NEEDS TO TAKE A BREAK FROM THERAPY BECAUSE OF HER ASTHMA AND WILL DISCUSS RESUMING WITH HER PCP WHEN THE WEATHER GETS BETTER. PATIENT REPROTS SHE IS WALKING BETTER THAN BEFORE STARTING PT AND SHE REPORTS DECREASED LOW BACK PAIN WITH ACTIVITY MODIFICATIONS MADE. PATIENT DENIES ANY FALLS SINCE STARTING PT. bilat LB Pain Intensity (Out of 10): 4 % Improvement: 50 Objective/Function: PATIENT WAS SEEN TODAY FOR RE-ASSESSMENT OF PROGRESS TOWARD THE SET PT GOALS AND THE NEED FOR FURTHER PHYSICAL THERAPY VS READINESS FOR DISCHARGE. UPON EXAM TODAY SHE IS DEMONSTRATING SLOW IMPROVEMENT TOWARD THE SET PT GOALS AND IS A GOOD CANDIDATE TO CONTINUE PT BASED ON PROGRESS MADE AND ROOM FOR FUTHER IMPROVEMENT BUT SHE WOULD LIKE TO TAKE A BREAK FROM THERAPY AT THIS TIME DUE TO HER ASTHMA AND THE WEATHER. PATIENT IS ABLE TO TRANSFER INDEP'LY FORM SIT TO STAND WITHOUT UE ASSIST TODAY BUT IT IS DIFFICULT FOR HER. TUG TEST: 15.41 Motor deficit: EARLINE LE'S GROSSLY 4/5 EXCEPT HIPS 4-/5. Sensory deficit: EARLINE LE LIGHT TOUCH SENSATION GROSSLY INTACT AND SYMMETRICAL. ROM deficit: TIGHT EARLINE HIP FLEXORS, HIP ROTATORS, HS'S AND GASTROC SOLEUS COMPLEX'S. Dural Signs: NEGATIVE EARLINE LE'S. Lumbar mvmt loss: flex - MOD. ext - ARCHIE. R SG - ARCHIE. L SG - ARCHIE. Core strength: POOR. Palpation: NO ACUTE LOW BACK TENDERNESS TODAY AND PATIENT REPORTS IT GETS TENDER AT TIMES STILL. Goal 1:: DECREASE C/O LOW BACK PAIN Goal Progress: Progressing Goal 2:: IMPROVE PERSONAL CARE, LIFTING, WALKING SITTING, STANDING, SLEEP, SOCIAL LIFE, TRAVEL AND HOMEMAKING FUNCTION. Goal Progress: Progressing Goal 3:: INSTRUCT IN PROPHYLAXIS Goal Progress: Progressing Plan: D/C AT PATIENTS REQUEST If there are questions or concerns regarding this patient's physical therapy, please feel free to call me at [phone]. Thank you for the referral of this patient. Sincerely, Debby Guardado, PT, Cert MDT Balance/Gait/Functional tests - Balance/Special Test Scores Oswestry Low Back Score: 23
== END 2021-11-24 13:07 | disposition home or self-care (01) ==
LOC: PT 10:00
PROVIDERS: PCP Internal Medicine; Referring Provider Nurse Practitioner; Visit Provider Nurse Practitioner
DX: M54.50 Low back pain, unspecified (principal)
CPT/HCPCS: 97112; 97113; 97162; 97164

== ENCOUNTER 2022-03-12 11:08 | Emergency (ER) | payer MEDICARE, OTHER, SELFPAY ==
[2022-03-12 11:09] VITALS: BP 182/80; PULSE 104; RESP 20; TEMP 36.6; O2SAT 98; BMI 42.5
--- NOTE | 2022-03-12 11:42 | CT_ITS ---
STUDY: CT BRAIN WITHOUT CONTRAST REASON FOR EXAM: Female, 81 years old. trauma RADIATION DOSAGE (If Supplied By Facility): CTDIvol = ( 44.99 ) mGy, DLP = ( 745.49 ) mGycm TECHNIQUE: Transaxial CT imaging of the brain was performed without administration of intravenous contrast material. Individualized dose optimization techniques were used for this CT. COMPARISON: 12/23/2015 FINDINGS: Normal soft tissue structures. Normal calvarium. There is mild cerebral atrophy with widening of the extra-axial spaces and ventricular dilatation. There are areas of decreased attenuation within the white matter tracts of the supratentorial brain, consistent with microvascular disease changes. Normal basal ganglia and thalami. Normal brainstem. Normal cerebellum. There is no intracranial hemorrhage. There are no findings of an acute ischemic infarction. Normal visualized paranasal sinuses. CT/Brain/Head without Contrast IMPRESSION: Chronic involutional changes of the brain. Electronically Signed: Mariano Davis MD at 12:30 EDT ,
--- NOTE | 2022-03-12 11:42 | CT_ITS ---
STUDY: CT CERVICAL SPINE WITHOUT CONTRAST REASON FOR EXAM: Female, 81 years old. injury, neck pain RADIATION DOSAGE (If Supplied By Facility): CTDIvol = ( 23.38 ) mGy, DLP = ( 462.60 ) mGycm TECHNIQUE: High resolution transaxial imaging was performed without contrast material. Sagittal and coronal images were reconstructed. Individualized dose optimization techniques were used for this CT. COMPARISON: None FINDINGS: Normal craniovertebral junction. There are degenerative changes of the anterior atlantoaxial articulation. Normal odontoid process. Normal cervical lordosis. Normal vertebral bodies and posterior osseous elements. C2-3: Normal endplates. Normal disc height and morphology. Normal central canal and intervertebral neuroforamina. C3-4: 2 mm retrolisthesis of C3 on C4 with a mild broad disc osteophyte complex produces mild spinal stenosis and mild bilateral neural foraminal stenosis. C4-5: 2 mm retrolisthesis of C4 on C5 with a mild broad disc osteophyte complex produces mild spinal stenosis and mild bilateral neural foraminal stenosis. C5-6: Mild broad disc osteophyte complex produces mild spinal stenosis and mild bilateral neural foraminal stenosis. C6-7: Normal endplates. Normal disc height and morphology. Normal central canal and intervertebral neuroforamina. C7-T1: Normal endplates. Normal disc height and morphology. Normal central canal and intervertebral neuroforamina. Normal visualized soft tissue structures. CT/Spine Cervical without Contras IMPRESSION: No acute fracture or subluxation. Electronically Signed: Mariano Davis MD at 12:20 EDT ,
--- NOTE | 2022-03-12 11:44 | CT_ITS ---
STUDY: CT FACIAL BONES WITHOUT CONTRAST REASON FOR EXAM: Female, 81 years old. R tmj injury/pain RADIATION DOSAGE (If Supplied By Facility): CTDIvol = ( 29.38 ) mGy, DLP = ( 510.73 ) mGycm TECHNIQUE: The patient was scanned in a multi detector CT scanner. Sagittal and coronal images were reconstructed. Individualized dose optimization techniques were used for this CT. COMPARISON: None. FINDINGS: Normal soft tissue structures. Normal orbital cotton and orbital contents. Normal nasal bones and anterior nasal spine. Normal facial bones. There is no demonstrated fracture. Mucous retention cyst in the floor the left maxillary sinus consistent with chronic sinusitis. CT/Sinus/Facial Bone IMPRESSION: Normal unenhanced CT of the facial bones. Electronically Signed: Mariano Davis MD at 12:26 EDT ,
--- NOTE | 2022-03-12 11:44 | ED.VIS.FALL ---
HPI HPI - Fall History of Present Illness Chief Complaint: Fall Informant: patient Occured/Mechanism Occurred: Weeks (2) Mechanism/Context: Yes same level fall and Yes trip Narrative: Foot caught in hose while watering flower beds Pain/Injury Location: Right temporal scalp/head Pain Location: head, face (Right TMJ) and neck Current Severity: Moderate Maximum Severity: Moderate Worsened by: Moving, eating, yawning Relieved by: Remaining still Associated Symptoms Associated Symptoms: Negative for Parasthesias, Weakness, Loss of function, Inability to ambulate, Loss of consciousness and Amnesia Narrative Narrative: Patient is 2 weeks after a fall that she is presenting for persistent complaints, this is the first time she has been seen for it. Pain is mostly in her head, diffuse neck, and the right temporal area and TMJ. She denies any otorrhea, vision changes or diplopia, nausea, vomiting. She has had headaches. She states when she fell, she landed with the right side of her head against a rock in her yard. She did not sustain any laceration or bleeding. She takes no anticoagulants or antiplatelet medications. She did not have any loss of consciousness at that time. [facility] Medical History Anxiety and depression Asthma Calcium nephrolithiasis Chronic back pain Fatty infiltration of liver GERD (gastroesophageal reflux disease) HTN (hypertension) Hyperlipidemia Obesity Obstructive sleep apnea Osteoarthritis Scoliosis Titubation Home Medications albuterol sulfate 2.5 mg INHALATION Q6H PRN 12/23/15 [History Last Taken 03/06/16 07:00] albuterol sulfate 6.7 gm IH DAILY 12/23/15 [History Last Taken Unknown] amlodipine 10 mg PO DAILY #30 tab 12/23/15 [Rx Last Taken 03/06/16 07:00] atorvastatin 20 mg PO QHS 12/23/15 [History Last Taken Unknown] epinephrine 0.3 mg IM X1 12/23/15 [History Last Taken Unknown] ropinirole 1 mg PO QHS 12/23/15 [History Last Taken Unknown] escitalopram oxalate 10 mg tablet 10 mg PO DAILY 10/21/18 [History Last Taken Unknown] fluticasone 500 mcg-salmeterol 50 mcg/dose blistr powdr for inhalation 1 inh INHALATION BID 10/21/18 [History Last Taken Unknown] gabapentin 400 mg capsule 400 mg PO BID 10/21/18 [History Last Taken Unknown] losartan 50 mg tablet 100 mg PO DAILY tab 10/21/18 [History Last Taken Unknown] omeprazole 20 mg capsule,delayed release 20 mg PO BID cap 10/21/18 [History Last Taken Unknown] oxycodone-acetaminophen 5 mg-325 mg tablet 1 tab PO BID PRN tab 10/21/18 [History Last Taken Unknown] fluticasone propion-salmeterol 1 puff INHALATION BID 07/01/19 [History Last Taken Unknown] hydrochlorothiazide 12.5 mg PO DAILY 07/01/19 [History Last Taken Unknown] mometasone-formoterol 13 gm IH BID 07/01/19 [History Last Taken Unknown] Allergy/AdvReac Type Severity Reaction Status Date / Time hydromorphone HCl Allergy Hives Verified 03/12/22 11:11 [From [facility] ER] venom-honey bee Allergy Hives Verified 03/12/22 11:11 [bee venom (honey bee)] Family History Father CAD (coronary artery disease) CVA (cerebral vascular accident) Brother CAD (coronary artery disease) Surgical History H/O bilateral hip replacements History of cholecystectomy History of colon resection History of hysterectomy History of lumbar discectomy History of lumbar surgery (2017) History of total left knee replacement (TKR) History of total right knee replacement Social History Smoking Status: Never smoker alcohol intake: never caffeine: Yes Type: coffee Number of servings: 3 ROS ROS ED Constitutional Constitutional ED: Denies chills or fever(s) Eyes Eyes: Denies change in vision or diplopia ENT ENT ED: Reports as per HPI, facial pain and headache(s); Denies ear pain, hearing loss, rhinorrhea or sore throat Cardiovascular Cardiovascular: Denies chest pain or palpitations Respiratory/Chest Respiratory/Chest: Denies cough or dyspnea Gastrointestinal Gastrointestinal: Denies abdominal pain, diarrhea, nausea or vomiting Genitourinary Genitourinary ED: Denies dysuria or hematuria Musculoskeletal Musculoskeletal: Reports as per HPI, back pain, neck pain and other Details: Low back pain is chronic, she gets injections for it, no changes Integumentary Denies abscess or rash Neurologic Neurologic: Reports headache(s); Denies paresthesias or weakness Psychiatric Psychiatric: Denies anxiety or suicidal thoughts EXAM Physical Exam Const Vital Signs: 03/12/22 11:09 03/12/22 11:15 Temperature 97.9 F Temperature Source Temporal Pulse Rate 104 H Respiratory Rate 20 H Respiratory Effort Normal Respiratory Depth Normal Respiratory Pattern Normal Blood Pressure 182/80 H Blood Pressure Mean 114 Pulse Ox 98 Oxygen Delivery Method Room Air Room Air Positive well nourished and well developed General Appearance ED: well developed and NAD HEENT Reports moist mucous membranes HEENT Narrative: Tender in the right temporal scalp without crepitance, depression, signs of trauma, and the right TMJ which clicks when she opens her mouth all the way. No malocclusion or gross deformities. No trismus. Intraoral exam is normal. No mastoid tenderness. No hemotympanum or otorhinorrhea. Other than the right TMJ, the rest of the face is nontender including the zygoma. normocephalic and atraumatic Eyes PERRL and EOMs intact bilaterally Neck full ROM and supple Neck Narrative: Tender at the lower midline without step-off or signs of trauma. Resp normal respiratory effort and clear to auscultation bilaterally Cardio regular rate, regular rhythm and no murmurs GI non-tender and non-distended Auscultation: normoactive bowel sounds Palpation: soft Back/Spine no CVA tenderness General Back: other FROM Extremity normal to inspection General Extremety ED: Negative for edema, pulses abnormal or tenderness General Extremity: Negative for edema or pulses abnormal Neuro oriented x3, CN's II-XII intact bilaterally, no sensory deficits noted and gait normal Sensorium / Orientation: awake and alert Motor Exam: strength 5/5 throughout Skin no rashes or lesions noted and no wounds MDM MDM MDM Narrative Medical decision making narrative: Perform CT of the patient's head, neck, and face, the latter of which was necessary in order to adequately image her right TMJ/mandible area. Luckily everything was negative for acute injury. Patient is reassured, advised to follow-up with her doctor, and advised that her blood pressure is high and she should continue taking her prescriptions and follow-up with her doctor for recheck this week. She is comfortable with that plan. Radiography Diagnostic Testing: Clinical Impression(s) from Imaging Studies Brain CT 03/12/22 11:42 IMPRESSION: Chronic involutional changes of the brain. Electronically Signed: Mariano Davis MD at 12:30 EDT , Cervical Spine CT 03/12/22 11:42 IMPRESSION: No acute fracture or subluxation. Electronically Signed: Mariano Davis MD at 12:20 EDT , Facial/Sinus 03/12/22 11:44 IMPRESSION: Normal unenhanced CT of the facial bones. Electronically Signed: Mariano Davis MD at 12:26 EDT , Discharge Plan Triage Chief Complaint: Fall ED Provider: Yann Solis Dx/Rx/DC Orders Clinical Impression: Sprain of right temporomandibular joint, Closed head injury without loss of consciousness, Acute cervical myofascial strain, Fall from slip, trip, or stumble, Accelerated hypertension Instructions: Hypertension Dc, TMJ Tx Prescriptions: No Action gabapentin 400 mg capsule 400 mg PO BID RF: 0 oxycodone-acetaminophen [Percocet] 5-325 mg tablet 1 tab PO BID PRN (Reason: Pain) RF: 0 escitalopram oxalate [Lexapro] 10 mg tablet 10 mg PO DAILY RF: 0 Advair Diskus 500-50 mcg/dose blister with device 1 inh INHALATION BID RF: 0 ropinirole 1 MG tablet 1 mg PO QHS RF: 0 atorvastatin 20 MG tablet 20 mg PO QHS RF: 0 albuterol sulfate 2.5 MG/3 ML solution for nebulization 2.5 mg INHALATION Q6H PRN (Reason: Wheezing) RF: 0 epinephrine 0.3 MG syringe 0.3 mg IM X1 RF: 0 albuterol sulfate 6.7 GM HFA aerosol inhaler 6.7 gm IH DAILY RF: 0 amlodipine 10 MG tablet 10 mg PO DAILY Qty: 30 RF: 0 losartan 50 mg tablet 100 mg PO DAILY RF: 0 omeprazole 20 mg capsule,delayed release(DR/EC) 20 mg PO BID RF: 0 fluticasone propion-salmeterol 1 PUFF inhaler 1 puff inhalation BID RF: 0 hydrochlorothiazide 25 MG tablet 12.5 mg PO DAILY RF: 0 mometasone-formoterol 13 GM HFA aerosol inhaler 13 gm IH BID RF: 0 Primary Care Provider: Cinthia Quiroz Referrals: Cinthia Quiroz DO [Primary Care Provider] - (This week, call for appointment) Disposition Disposition: Home, Self Care
== END 2022-03-12 13:05 | disposition home or self-care (01) ==
PROVIDERS: Emergency Provider Emergency Medicine; PCP Internal Medicine; Visit Provider Emergency Medicine
DX: S03.41XA Sprain of jaw, right side, initial encounter (principal); S09.90XA Unspecified injury of head, initial encounter; S16.1XXA Strain of muscle, fascia and tendon at neck level, initial encounter; I10 Essential (primary) hypertension; G47.33 Obstructive sleep apnea (adult) (pediatric); W19.XXXA Unspecified fall, initial encounter
CPT/HCPCS: 70450; 70486; 72125; 99282

== ENCOUNTER → 2022-03-23 | Outpatient (CLI) | payer MEDICARE, OTHER, SELFPAY | END | disposition home or self-care (01) | LOC: LAB 10:07 | PROVIDERS: PCP Internal Medicine; Referring Provider Internal Medicine Pulmonary Disease; Visit Provider Internal Medicine Pulmonary Disease | DX: J45.909 Unspecified asthma, uncomplicated (principal); R05.9 Cough, unspecified | CPT/HCPCS: 87070; 87205 ==

== ENCOUNTER → 2022-04-20 | Outpatient (CLI) | payer MEDICARE, OTHER, SELFPAY ==
[2022-04-20 11:49] LABS: Absolute Lymphocyte Count 1.66 X10^3/uL (0.83-4.51); Absolute Neutrophil Count 3.7 X10^3/uL (2.0-7.7); Basophil# 0.04 X10^3/uL; Basophil% 0.6 % (0-1); Eosinophil# 0.33 X10^3/uL; Eosinophils% 5.3 % (0-5); Hematocrit 43.2 % (37-47); Hemoglobin 13.8 g/dL (12.0-15.0); Lymphocyte # 1.66 X10^3/ul (0.83-4.51); Lymphocyte % 26.6 % (19-41); Mean Corp Hgb Conc 31.9 g/dL (32-36); Mean Corpuscular Volume 90.8 fL (81-99); Mean Platelet Vol. 9.3 fl (6.2-12.0); Monocyte# 0.46 X10^3/uL; Monocyte% 7.4 % (0-10); NRBC Flagged by Analyzer 0 % (0-5); Neutrophil % 59.5 % (47-70); Platelet Count 276 K/mm3 (150-450); RBC Distribution Width CV 15.1 % (11.6-14.6); RBC Distribution Width SD 49.7 fl (35.1-43.9); Red Blood Count 4.76 M/mm3 (4.2-5.4); White Blood Count 6.2 K/mm3 (4.4-11.0)
== END | disposition home or self-care (01) ==
LOC: LAB 10:43
PROVIDERS: PCP Internal Medicine; Visit Provider Internal Medicine Pulmonary Disease
DX: J98.11 Atelectasis (principal); R09.02 Hypoxemia; I10 Essential (primary) hypertension
CPT/HCPCS: 36415; 85025

== ENCOUNTER 2022-04-23 16:37 | Emergency (ER) | payer MEDICARE, OTHER, SELFPAY ==
[2022-04-23 16:38] VITALS: BP 160/94; PULSE 95; RESP 18; TEMP 37; O2SAT 95; BMI 28.7
--- NOTE | 2022-04-23 16:57 | CT_ITS ---
STUDY: CT BRAIN WITHOUT CONTRAST REASON FOR EXAM: Female, 81 years old. HEADACHE Trauma TECHNIQUE: Transaxial CT imaging of the brain was performed without administration of intravenous contrast material. Individualized dose optimization techniques were used for this CT. COMPARISON: None FINDINGS: Normal calvarium. Normal soft tissues. Normal size ventricles and extra-axial spaces for the patient''s age. Normal white matter tracts of the cerebral hemispheres. Normal basal ganglia and thalami. Normal brainstem. Normal cerebellum. There is no intracranial hemorrhage. There are no findings of an acute ischemic infarction. There is sinus disease. ASPECTS 10 CT/Brain/Head without Contrast IMPRESSION: There are no acute intracranial findings. Electronically Signed: Xu Jones MD at 18:28 EDT ,
--- NOTE | 2022-04-23 16:57 | CT_ITS ---
STUDY: CT LUMBAR SPINE WITHOUT CONTRAST REASON FOR EXAM: Female, 81 years old. TraumaHistory: Trauma pain History: Trauma pain TECHNIQUE: The patient was scanned in a multi detector CT scanner. High resolution transaxial imaging was performed. Images were obtained from T12 to S1. Sagittal and coronal images were reconstructed. Radiation: CTDIvol = [32.67] mGy, DLP = [843.43] mGy-cm Individualized dose optimization techniques were used for this CT. COMPARISON: 08.05.21 xr FINDINGS: Normal lumbar lordosis. There is no substantial scoliosis. Normal vertebrae of the lumbar spine. L1-2: There is bilateral facet arthropathy. Loss of intervertebral disc height. There is endplate spondylosis of the vertebral body. Unremarkable central canal. Unremarkable intervertebral neuroforamina. L2-3: There is bilateral facet arthropathy. Loss of intervertebral disc height. There is endplate spondylosis of the vertebral body. Unremarkable central canal. Unremarkable intervertebral neuroforamina. L3-4: There is bilateral facet arthropathy. Loss of intervertebral disc height. There is endplate spondylosis of the vertebral body. Unremarkable central canal. Unremarkable intervertebral neuroforamina. L4-5: There is bilateral facet arthropathy. Loss of intervertebral disc height. There is endplate spondylosis of the vertebral body. There is too much artifact to evaluate the central canal. Unremarkable intervertebral neuroforamina. There is bilateral ligamentum flavum thickening. L5-S1: There is bilateral facet arthropathy. Loss of intervertebral disc height. There is endplate spondylosis of the vertebral body. There is too much artifact to evaluate the central canal. Narrowing of the bilateral intervertebral neuroforamina. Pedicle screws and spinal fixation hardware noted. Vacuum disc phenomenon. Normal visualized paraspinous soft tissue structures. CT/Spine Lumbar without Contrast IMPRESSION: (NOT LISTED IN ORDER OF SIGNIFICANCE) Multilevel degenerative changes, as described above. Electronically Signed: Xu Jones MD at 18:32 EDT ,
--- NOTE | 2022-04-23 16:57 | EKG12_ITS ---
Test Reason : Blood Pressure : / mmHG Vent. Rate : 084 BPM Atrial Rate : 084 BPM P-R Int : 144 ms QRS Dur : 086 ms QT Int : 380 ms P-R-T Axes : 057 -33 046 degrees QTc Int : 449 ms Normal sinus rhythm Left axis deviation Abnormal ECG Confirmed by MIRI LARIOS, THANH ([id number]), material expeditor CANDACE HERNANDEZ ([id number]) on 04/25/2022 8:45:18 AM Referred By: Confirmed By:THANH CHERY MD
[2022-04-23] MEDS: Ipratropium/Albuterol Sulfate 3 ML AMPUL.NEB INHALATION (17:22)
[2022-04-23 17:23] VITALS: PULSE 84; RESP 16; O2SAT 93
[2022-04-23 17:29] LABS: Color, Urine Amber (Yellow); Glucose, Dipstick Normal (Normal); Ketone-Dipstick 50 mg/dl (Negative); Leukocyte Esterase-Dipstick 25 /ul (Negative); Mucous, Urine 0 SEEN /hpf (<or=2+); Nitrite-Dipstick Positive (Negative); Occult Blood-Urine 50 /ul (Negative); Protein-Dipstick 30 mg/dl (Negative); Red Blood Cells-Urine 0 SEEN /hpf (0-5); Squamous Epithelial Cells - UA 0 SEEN /hpf (5-10); Urine Clarity Clear (Clear); Urine Urobilinogen 8 mg/dl (Normal)
[2022-04-23 17:30] LABS: Absolute Lymphocyte Count 0.61 X10^3/uL (0.83-4.51); Absolute Neutrophil Count 7.6 X10^3/uL (2.0-7.7); Basophil# 0.02 X10^3/uL; Basophil% 0.2 % (0-1); Eosinophil# 0.01 X10^3/uL; Eosinophils% 0.1 % (0-5); Hematocrit 42.9 % (37-47); Hemoglobin 14.1 g/dL (12.0-15.0); Lymphocyte # 0.61 X10^3/ul (0.83-4.51); Lymphocyte % 6.7 % (19-41); Mean Corp Hgb Conc 32.9 g/dL (32-36); Mean Corpuscular Hgb 29.3 pg (27.0-32.0); Mean Corpuscular Volume 89.2 fL (81-99); Mean Platelet Vol. 8.9 fl (6.2-12.0); Monocyte# 0.79 X10^3/uL; Monocyte% 8.7 % (0-10); NRBC Flagged by Analyzer 0 % (0-5); Neutrophil # 7.57 X10^3/uL (2.7-7.7); Neutrophil % 83.6 % (47-70); Platelet Count 273 K/mm3 (150-450); RBC Distribution Width CV 14.9 % (11.6-14.6); RBC Distribution Width SD 49.7 fl (35.1-43.9); Red Blood Count 4.81 M/mm3 (4.2-5.4); White Blood Count 9.1 K/mm3 (4.4-11.0)
[2022-04-23 17:33] LABS: Urine Bilirubin Dipstick 3 mg/dL (Negative)
[2022-04-23 17:34] LABS: White Blood Cells 0-5 SEEN /hpf (0-5)
[2022-04-23 17:35] LABS: Bacteria 4+ /hpf (None Seen)
[2022-04-23 17:48] LABS: Anion Gap 7 (5-15); BUN 15 mg/dL (7-18); BUN/Creat Ratio 16.4 RATIO (10-20); Calcium,Total 9.4 mg/dL (8.5-10.1); Chloride 104 mmol/L (98-107); Creatinine, Serum 0.91 mg/dL (0.55-1.02); EST Glomerular Filtration Rate 63 mL/min (>60); Est Glom Filt Rate - Afr Amer 76 mL/min (>60); Estimated Creatinine Clearance 36.59 ml/min; Glucose 126 mg/dL (74-106); Potassium 3.4 mmol/L (3.5-5.1); Sodium Level 139 mmol/L (136-145); Troponin-I HS 8 pg/mL (3.0-54.0)
--- NOTE | 2022-04-23 17:53 | EDS_ITS ---
HPI History of Present Illness Chief Complaint: Fall Informant: patient Narrative Narrative: Patient states that a week ago she fell because of her dog. She landed on her buttock. She has had lower mid back pain ever since then. She tells me that she has been in bed since this happened. However, when I talked to her she has been in bed but she is also gotten up to walk around the house. She has used a four-legged cane. She has had her family over for the week to help her. She was not seen after this fall. Today she got up to go the bathroom. She states she was turning to go into the bathroom just got slightly dizzy and fell down. She did not cause any new injury but she has worsening back pain. No numbness tingling weakness. No chest pain. No palpitations. She did not lose consciousness. No fevers chills sweats. She states she is due for an albuterol breathing treatment for her asthma but is not having exacerbation. [facility] Medical History Anxiety and depression Asthma Calcium nephrolithiasis Chronic back pain Fatty infiltration of liver GERD (gastroesophageal reflux disease) HTN (hypertension) Hyperlipidemia Obesity Obstructive sleep apnea Osteoarthritis Scoliosis Titubation Home Medications albuterol sulfate 2.5 mg inhalation Q6H PRN Wheezing 12/23/15 [History Last Taken 03/06/16 07:00] albuterol sulfate 90 mcg/actuation aerosol inhaler 6.7 gm IH DAILY 12/23/15 [History Last Taken Unknown] amlodipine 10 mg tablet 10 mg PO DAILY #30 tabs 12/23/15 [Rx Last Taken 03/06/16 07:00] atorvastatin 20 mg tablet 20 mg PO QHS 12/23/15 [History Last Taken Unknown] epinephrine 0.3 mg/0.3 mL injection, auto-injector 0.3 mg IM X1 12/23/15 [Histor y Last Taken Unknown] ropinirole 1 mg tablet 1 mg PO QHS 12/23/15 [History Last Taken Unknown] escitalopram oxalate 10 mg tablet (Lexapro) 10 mg PO DAILY 10/21/18 [History Last Taken Unknown] fluticasone 500 mcg-salmeterol 50 mcg/dose blistr powdr for inhalation (Advair Diskus) 1 inh inhalation BID 10/21/18 [History Last Taken Unknown] gabapentin 400 mg capsule 400 mg PO BID 10/21/18 [History Last Taken Unknown] losartan 50 mg tablet 100 mg PO DAILY 10/21/18 [History Last Taken Unknown] omeprazole 20 mg capsule,delayed release 20 mg PO BID 10/21/18 [History Last Taken Unknown] oxycodone-acetaminophen 5 mg-325 mg tablet (Percocet) 1 tab PO BID PRN Pain 10/21/18 [History Last Taken Unknown] fluticasone 500 mcg-salmeterol 50 mcg/dose blistr powdr for inhalation 1 puff inhalation BID 07/01/19 [History Last Taken Unknown] hydrochlorothiazide 25 mg tablet 12.5 mg PO DAILY 07/01/19 [History Last Taken Unknown] mometasone-formoterol HFA 200 mcg-5 mcg/actuation aerosol inhaler 13 gm IH BID 07/01/19 [History Last Taken Unknown] Allergy/AdvReac Type Severity Reaction Status Date / Time hydromorphone HCl Allergy Hives Verified 04/23/22 16:38 [From Exalgo ER] venom-honey bee Allergy Hives Verified 04/23/22 16:38 [bee venom (honey bee)] Family History Father CAD (coronary artery disease) CVA (cerebral vascular accident) Brother CAD (coronary artery disease) Surgical History H/O bilateral hip replacements History of cholecystectomy History of colon resection History of hysterectomy History of lumbar discectomy History of lumbar surgery (2016) History of total left knee replacement (TKR) History of total right knee replacement Social History Smoking Status: Never smoker alcohol intake: never caffeine: Yes Type: coffee Number of servings: 3 ROS ROS ED Constitutional Constitutional ED: Denies chills or fever(s) Eyes Eyes: Denies change in vision ENT ENT ED: Denies rhinorrhea or sore throat Cardiovascular Cardiovascular: Denies chest pain or palpitations Respiratory/Chest Respiratory/Chest: Denies cough or dyspnea Gastrointestinal Gastrointestinal: Denies abdominal pain, diarrhea, melena, nausea or vomiting Genitourinary Genitourinary ED: Denies dysuria or hematuria Musculoskeletal Musculoskeletal: Reports back pain; Denies neck pain Integumentary Reports other Details: She has noted some bruising on her right foot after her fall last week. But her right foot really is not hurting her to any great degree ; Denies rash Neurologic Neurologic: Denies paresthesias or weakness Endocrine Endocrinology: Denies polydipsia or polyuria Hematologic/Lymphatic Hematologic/Lymphatic: Denies easy bleeding or easy bruising Allergic/Immunologic Allergic/Immunologic ED: Denies urticaria EXAM Physical Exam Const Vital Signs: 04/23/22 16:38 04/23/22 16:51 04/23/22 17:23 Temperature 98.6 F Temperature Source Temporal Pulse Rate 95 84 Respiratory Rate 18 16 Respiratory Effort Normal Non-Labored Respiratory Depth Normal Respiratory Pattern Normal Blood Pressure 160/94 H Blood Pressure Mean 116 Pulse Ox 95 Oxygen Delivery Method Room Air Room Air 04/23/22 17:23 04/23/22 17:25 Temperature Temperature Source Pulse Rate Respiratory Rate Respiratory Effort Respiratory Depth Respiratory Pattern Blood Pressure Blood Pressure Mean Pulse Ox 93 Oxygen Delivery Method Room Air Room Air Positive well nourished and well developed General Appearance ED: well developed and NAD HEENT Negative for atraumatic or tenderness Neck full ROM Neck Narrative: No neck tenderness Chest Wall inspection of chest normal Chest Narrative: Patient has a life alert button around her neck. Resp normal respiratory effort and clear to auscultation bilaterally Resp Narrative: No wheeze but she does have a slight prolonged expiration. We will get her a breathing treatment as she is due for 1. Auscultation: Negative for rales, rhonchi or wheezes Cardio regular rhythm and S1 normal heart sound GI normal to inspection, nondistended, normoactive bowel sounds, non-tender and non-distended Back/Spine normal to inspection Back/Spine Narrative: There is some mild tenderness around the L3 area. I see no bruising or abrasions or rash in the area. Extremity Extremity Narrative: Slight ecchymosis along the lateral edge of the right foot but no noted tenderness Neuro oriented x3 Psych mental status grossly normal Skin no rashes or lesions noted Skin Narrative: Contusion to right foot as above MDM MDM MDM Narrative Medical decision making narrative: Patient CBC shows no acute process. Electrolytes showed minimally decreased potassium. We did replace this. Glucose is barely elevated at 126. Urine shows mixed findings. There is 4+ bacteria but 0-5 white cells and it is clear. But she has positive nitrites. She has no symptoms of UTI. She has no white count or fever. I will send this for culture but not treat acutely. CT of her head and back showed no acute process. Chest x-ray shows no acute process. X- ray of her foot does show a metatarsal fracture. But she states is not even hurting that much. Patient did walk short distances in the room. She has a cane. She states that her grandson and granddaughter are going to be at home. They are home now. They plan to come pick her up. She wants to go home. I think that is reasonable. I did note that she had a few hives around her neck and legs. She states she is just starting to itch. She only got albuterol and Atrovent here. She has no history of allergies to this. She got potassium. But we will get her done Benadryl here. She is not having dyspnea. Patient is doing well. Hives improved. We did give her morphine for pain. She has oxycodone at home. Even though she has hives to hydromorphone she states that morphine does not cause them. She already had Benadryl. Lab Data Attestation: I reviewed the patient's lab results. Labs: Laboratory Results - last 24 hr 04/23/22 04/23/22 04/23/22 17:15 17:15 17:15 WBC 9.1 RBC 4.81 Hgb 14.1 Hct 42.9 MCV 89.2 MCH 29.3 MCHC 32.9 RDW Std Deviation 49.7 H RDW Coeff of Toño 14.9 H Plt Count 273 MPV 8.9 Immature Gran % (Auto) 0.700 Neut % (Auto) 83.6 H Lymph % (Auto) 6.7 L [place] % (Auto) 8.7 Eos % (Auto) 0.1 Baso % (Auto) 0.2 Absolute Neuts (auto) 7.6 Absolute Lymphs (auto) 0.61 L Nucleated RBC % 0 Sodium 139 Potassium 3.4 L Chloride 104 Carbon Dioxide 28.0 Anion Gap 7 BUN 15 Creatinine 0.91 Estim Creat Clear Calc 36.59 Est GFR (MDRD) Af Amer 76 Est GFR (MDRD) Non-Af 63 BUN/Creatinine Ratio 16.4 Glucose 126 H Calcium 9.4 Troponin I High Sens 8 Urine Color Sophie Urine Clarity Clear Urine pH 7.0 Ur Specific Stevens 1.010 Urine Protein 30 H Urine Glucose (UA) Normal Urine Ketones 50 H Urine Occult Blood 50 H Urine Nitrite Positive H Urine Bilirubin 3 H Urine Urobilinogen 8 H Ur Leukocyte Esterase 25 H Urine RBC 0 SEEN Urine WBC 0-5 SEEN Ur Squamous Epith Cells 0 SEEN Urine Bacteria 4+ Urine Mucus 0 SEEN Radiography Diagnostic Testing: Clinical Impression(s) from Imaging Studies Brain CT 04/23/22 16:57 IMPRESSION: There are no acute intracranial findings. Electronically Signed: Xu Jones MD at 18:28 EDT , Lumbar Spine CT 04/23/22 16:57 IMPRESSION: (NOT LISTED IN ORDER OF SIGNIFICANCE) Multilevel degenerative changes, as described above. Electronically Signed: Xu Jones MD at 18:32 EDT , Chest X-Ray 04/23/22 17:59 IMPRESSION: There are no acute findings. Electronically Signed: Xu Jones MD at 18:33 EDT , Foot X-Ray 04/23/22 17:59 IMPRESSION: Oblique fracture of the distal fifth metatarsal bone. Overlying soft tissue swelling. Fracture is displaced. Distal fracture fragment is displaced medially. Electronically Signed: Xu Jones MD at 18:33 EDT , EKG Initial EKG: Comments: EKG done for generalized weakness read by me shows normal sinus rhythm with a rate of 84. No ventricular ectopy. No acute ST elevation depression. [place] interval, QRS duration and QTC are normal. Discharge Plan Triage Chief Complaint: Fall ED Provider: Андрей López Dx/Rx/DC Orders Clinical Impression: Fall at home, Closed fracture of fifth metatarsal bone of right foot Instructions: ED Fracture, Foot Prescriptions: No Action gabapentin 400 mg capsule 400 mg PO BID oxycodone-acetaminophen [Percocet] 5-325 mg tablet 1 tab PO BID PRN (Reason: Pain) Label Comments: 1-2 tabs every 6 hours as needed escitalopram oxalate [Lexapro] 10 mg tablet 10 mg PO DAILY Advair Diskus 500-50 mcg/dose blister with device 1 inh INHALATION BID ropinirole 1 MG tablet 1 mg PO QHS Label Comments: RESTLESS LEGS atorvastatin 20 MG tablet 20 mg PO QHS Label Comments: CHOLESTEROL albuterol sulfate 2.5 MG/3 ML solution for nebulization 2.5 mg INHALATION Q6H PRN (Reason: Wheezing) Label Comments: BREATHING epinephrine 0.3 MG syringe 0.3 mg IM X1 Label Comments: ANAPHYLAXIS albuterol sulfate 6.7 GM HFA aerosol inhaler 6.7 gm IH DAILY Label Comments: BREATHING amlodipine 10 MG tablet 10 mg PO DAILY Qty: 30 0RF Label Comments: BLOOD PRESSURE losartan 50 mg tablet 100 mg PO DAILY Label Comments: BLOOD PRESSURE omeprazole 20 mg capsule,delayed release(DR/EC) 20 mg PO BID Label Comments: ACID REFLUX fluticasone propion-salmeterol 1 PUFF inhaler 1 puff inhalation BID hydrochlorothiazide 25 MG tablet 12.5 mg PO DAILY mometasone-formoterol 13 GM HFA aerosol inhaler 13 gm IH BID Primary Care Provider: Cinthia Quiroz Referrals: Anthony Masterson DO [STAFF PHYSICIAN] - 1 Week Cinthia Quiroz DO [Primary Care Provider] - 3-5 Days Disposition Disposition: Home, Self Care Discharge Date/Time: 04/23/22 19:59
--- NOTE | 2022-04-23 17:59 | RAD_ITS ---
STUDY: X-RAY CHEST REASON FOR EXAM: Female, 81 years old. CHEST PAIN Trauma TECHNIQUE: XR Chest 1 View COMPARISON: 5.2.22 FINDINGS: Lower lobe atelectasis or scarring. Normal size heart. Normal mediastinum and brandon. Normal visualized pulmonary arteries. There is atherosclerotic calcification of the aortic arch with tortuosity. There are diffuse degenerative changes of the visualized thoracic spine. There is degenerative osteoarthritis of the bilateral shoulders. There is no demonstrated abnormality of the visualized soft tissue structures of the upper abdomen. RAD/Chest 1 View (Portable) IMPRESSION: There are no acute findings. Electronically Signed: Xu Jones MD at 18:33 EDT ,
--- NOTE | 2022-04-23 17:59 | RAD_ITS ---
EXAM: XR RIGHT FOOT COMPLETE, 3 OR MORE VIEWS CLINICAL INDICATION: Trauma pain TECHNIQUE: Frontal, lateral and oblique views of the right foot. This report was created using [employer] report generation technology. COMPARISON: None. FINDINGS: BONES/JOINTS: Oblique fracture of the distal fifth metatarsal bone. Overlying soft tissue swelling. Fracture is displaced. Distal fracture fragment is displaced medially. There is a calcaneal spur. Preservation of the joint space. No sclerotic or destructive changes observed. SOFT TISSUES: See above. RAD/Foot min 3 Views IMPRESSION: Oblique fracture of the distal fifth metatarsal bone. Overlying soft tissue swelling. Fracture is displaced. Distal fracture fragment is displaced medially. Electronically Signed: Xu Jones MD at 18:33 EDT ,
[2022-04-23] MEDS: Potassium Chloride Oral Tablet 20 MEQ PO (18:16)
[2022-04-23] MEDS: DiphenhydrAMINE 50 MG/ML Syringe 25 MG IV (19:19)
[2022-04-23] MEDS: Morphine 4 MG/ML Syringe IV (19:33)
== END 2022-04-23 19:59 | disposition home or self-care (01) ==
PROVIDERS: Emergency Provider Emergency Medicine; PCP Internal Medicine; Visit Provider Emergency Medicine
DX: S92.351A Displaced fracture of fifth metatarsal bone, right foot, initial encounter for closed fracture (principal); G47.33 Obstructive sleep apnea (adult) (pediatric); K76.0 Fatty (change of) liver, not elsewhere classified; W19.XXXA Unspecified fall, initial encounter
CPT/HCPCS: 70450; 71045; 72131; 73630; 80048; 81001; 84484; 85025; 87077; 87086; 87088; 87186; 93005; 94640; 96374; 96375; 99284; A4216

== ENCOUNTER 2022-05-14 14:28 | Emergency (ER) | payer MEDICARE, OTHER, SELFPAY ==
[2022-05-14 14:29] VITALS: BP 153/92; PULSE 86; RESP 18; TEMP 36.6; O2SAT 96; BMI 35.9
--- NOTE | 2022-05-14 14:57 | EDS_ITS ---
HPI History of Present Illness Chief Complaint: Back Narrative Narrative: 81-year-old female with acute on chronic back pain. She states that she had a fall a couple of weeks ago. She was seen on 04/23/2022 after she fell. She had a fairly normal work-up. Her images were normal. She states that her pain initially was better and now it is getting worse. She also reports that she is in pain management with Dr. Delgado. She states that she tried to get her pain medication filled but they will not fill it for a few more days. She takes Percocet 5 325 mg. She states that she had her prescription filled on the eighth of this month and had 28 days prescribed. She states he is not taking more than her recommended dosing. She has not had any new falls. She complains of pain in the right lower thoracic and in the right upper lumbar paraspinal musculature region. [facility] Medical History Anxiety and depression Asthma Calcium nephrolithiasis Chronic back pain Fatty infiltration of liver GERD (gastroesophageal reflux disease) HTN (hypertension) Hyperlipidemia Obesity Obstructive sleep apnea Osteoarthritis Scoliosis Titubation Home Medications albuterol sulfate 2.5 mg/3 mL (0.083 %) solution for nebulization 2.5 mg inhalation Q6H PRN Wheezing 12/23/15 [History Last Taken 03/06/16 07:00] albuterol sulfate 90 mcg/actuation aerosol inhaler 6.7 gm IH DAILY 12/23/15 [History Last Taken Unknown] amlodipine 10 mg tablet 10 mg PO DAILY #30 tabs 12/23/15 [Rx Last Taken 03/06/16 07:00] atorvastatin 20 mg tablet 20 mg PO QHS 12/23/15 [History Last Taken Unknown] epinephrine 0.3 mg/0.3 mL injection, auto-injector 0.3 mg IM X1 12/23/15 [History Last Taken Unknown] ropinirole 1 mg tablet 1 mg PO QHS 12/23/15 [History Last Taken Unknown] escitalopram oxalate 10 mg tablet (Lexapro) 10 mg PO DAILY 10/21/18 [History Last Taken Unknown] fluticasone 500 mcg-salmeterol 50 mcg/dose blistr powdr for inhalation (Advair Diskus) 1 inh inhalation BID 10/21/18 [History Last Taken Unknown] gabapentin 400 mg capsule 400 mg PO BID 10/21/18 [History Last Taken Unknown] losartan 50 mg tablet 100 mg PO DAILY 10/21/18 [History Last Taken Unknown] omeprazole 20 mg capsule,delayed release 20 mg PO BID 10/21/18 [History Last Taken Unknown] oxycodone-acetaminophen 5 mg-325 mg tablet (Percocet) 1 tab PO BID PRN Pain 10/21/18 [History Last Taken Unknown] fluticasone 500 mcg-salmeterol 50 mcg/dose blistr powdr for inhalation 1 puff inhalation BID 07/01/19 [History Last Taken Unknown] hydrochlorothiazide 25 mg tablet 12.5 mg PO DAILY 07/01/19 [History Last Taken Unknown] mometasone-formoterol HFA 200 mcg-5 mcg/actuation aerosol inhaler 13 gm IH BID 07/01/19 [History Last Taken Unknown] Allergy/AdvReac Type Severity Reaction Status Date / Time hydromorphone HCl Allergy Hives Verified 05/14/22 14:31 [From Exalgo ER] venom-honey bee Allergy Hives Verified 05/14/22 14:31 [bee venom (honey bee)] Family History Father CAD (coronary artery disease) CVA (cerebral vascular accident) Brother CAD (coronary artery disease) Surgical History H/O bilateral hip replacements History of cholecystectomy History of colon resection History of hysterectomy History of lumbar discectomy History of lumbar surgery (2016) History of total left knee replacement (TKR) History of total right knee replacement Social History Smoking Status: Never smoker alcohol intake: never caffeine: Yes Type: coffee Number of servings: 3 ROS ROS ED Constitutional Constitutional ED: Denies chills or fever(s) Eyes Eyes: Denies change in vision ENT ENT ED: Denies rhinorrhea or sore throat Cardiovascular Cardiovascular: Denies chest pain or palpitations Respiratory/Chest Respiratory/Chest: Denies cough or dyspnea Gastrointestinal Gastrointestinal: Denies abdominal pain, diarrhea, melena, nausea or vomiting Genitourinary Genitourinary ED: Denies dysuria or hematuria Musculoskeletal Musculoskeletal: Reports back pain; Denies neck pain Integumentary Reports other Details: She has noted some bruising on her right foot after her fall last week. But her right foot really is not hurting her to any great degree ; Denies rash Neurologic Neurologic: Denies paresthesias or weakness Endocrine Endocrinology: Denies polydipsia or polyuria Hematologic/Lymphatic Hematologic/Lymphatic: Denies easy bleeding or easy bruising Allergic/Immunologic Allergic/Immunologic ED: Denies urticaria EXAM Physical Exam Const Vital Signs: 05/14/22 14:29 Temperature 97.9 F Temperature Source Temporal Pulse Rate 86 Respiratory Rate 18 Blood Pressure 153/92 H Blood Pressure Mean 112 Pulse Ox 96 Oxygen Delivery Method Room Air MDM MDM MDM Narrative Medical decision making narrative: Patient presenting with back pain. She is tender in the right upper lumbar right lower thoracic paraspinal musculature. No bruising. No deformity. Patient able to sit up in the bed under her own strength. She does have a reproducible pain with twisting of her trunk and palpation of this region. I did review the [facility] report for the patient and she did get prescribed 28 days worth of oxycodone on the 21 April. It is only the therefore she should have more pain medication at home. I do not think she needs repeat imaging. She does not have any midline pain or signs or symptoms of cauda equina syndrome. I recommended that she follow-up with her pain management doctor. Today I will give her 1 oxycodone 5 mg in the ED. Impression: 1. Acute lumbar strain 2. Acute thoracic strain 3. History of chronic back pain 4. History of falls Lab Data Attestation: I reviewed the patient's lab results. Discharge Plan Triage Chief Complaint: Back ED Provider: Jagjit Rosario Dx/Rx/DC Orders Prescriptions: No Action gabapentin 400 mg capsule 400 mg PO BID oxycodone-acetaminophen [Percocet] 5-325 mg tablet 1 tab PO BID PRN (Reason: Pain) Label Comments: 1-2 tabs every 6 hours as needed escitalopram oxalate [Lexapro] 10 mg tablet 10 mg PO DAILY Advair Diskus 500-50 mcg/dose blister with device 1 inh INHALATION BID ropinirole 1 MG tablet 1 mg PO QHS Label Comments: RESTLESS LEGS atorvastatin 20 MG tablet 20 mg PO QHS Label Comments: CHOLESTEROL albuterol sulfate 2.5 MG/3 ML solution for nebulization 2.5 mg INHALATION Q6H PRN (Reason: Wheezing) Label Comments: BREATHING epinephrine 0.3 MG syringe 0.3 mg IM X1 Label Comments: ANAPHYLAXIS albuterol sulfate 6.7 GM HFA aerosol inhaler 6.7 gm IH DAILY Label Comments: BREATHING amlodipine 10 MG tablet 10 mg PO DAILY Qty: 30 0RF Label Comments: BLOOD PRESSURE losartan 50 mg tablet 100 mg PO DAILY Label Comments: BLOOD PRESSURE omeprazole 20 mg capsule,delayed release(DR/EC) 20 mg PO BID Label Comments: ACID REFLUX fluticasone propion-salmeterol 1 PUFF inhaler 1 puff inhalation BID hydrochlorothiazide 25 MG tablet 12.5 mg PO DAILY mometasone-formoterol 13 GM HFA aerosol inhaler 13 gm IH BID Primary Care Provider: Cinthia Quiroz Referrals: Cinthia Quiroz DO [Primary Care Provider] -
[2022-05-14] MEDS: oxyCODONE 5 MG Tablet PO (15:19)
[2022-05-14] MEDS: Lidocaine 5% Patch 1 PATCH TOPICAL (15:19)
== END 2022-05-14 15:27 | disposition home or self-care (01) ==
PROVIDERS: Emergency Provider Student in an Organized Health Care Education/Training Program; PCP Internal Medicine; Visit Provider Student in an Organized Health Care Education/Training Program
DX: S39.012A Strain of muscle, fascia and tendon of lower back, initial encounter (principal); S29.019A Strain of muscle and tendon of unspecified wall of thorax, initial encounter; G47.33 Obstructive sleep apnea (adult) (pediatric); M54.9 Dorsalgia, unspecified; G89.29 Other chronic pain; W19.XXXA Unspecified fall, initial encounter
CPT/HCPCS: 99284